=== PATIENT | male | born 1955 | race Hispanic/Latino ===

== ENCOUNTER 2017-06-25 11:38 | Inpatient (IN) | payer OTHER ==
[2017-06-25] MEDS ORDERED: Tdap Vaccine 0.5 ml Vial (10-64 yrs) IM ONE (12:37)
--- NOTE | 2017-06-25 13:17 | CT ---
PROCEDURE: CT HEAD WITHOUT CONTRAST. HISTORY: Fall, trauma COMPARISON: None available. TECHNIQUE: Axial computed tomography images were obtained through the head/brain without intravenous contrast. Radiation dose: Total exam DLP = 933.68 mGy-cm. This CT exam was performed using one or more of the following dose reduction techniques: Automated exposure control, adjustment of the mA and/or kV according to patient size, and/or use of iterative reconstruction technique. FINDINGS: HEMORRHAGE: No intracranial hemorrhage. BRAIN: There is no mass, mass effect or abnormal extra-axial fluid collection. There is no territorial infarction VENTRICLES: There is mild age-related global parenchymal volume loss and proportionate enlargement of the ventricles and cortical sulci. CALVARIUM: There is no calvarial fracture or extracranial soft tissue swelling. PARANASAL SINUSES: Predominantly clear. MASTOID AIR CELLS: Predominantly clear. OTHER FINDINGS: None. IMPRESSION: No acute intracranial abnormality.
[2017-06-25 14:56] LABS: ALB/GLOB RATIO 1.4 (1.0-2.1); ALBUMIN 4.6 g/dL (3.5-5.0); ALT/SGPT 77 U/L (21-72); AST/SGOT 48 U/L (17-59); BLOOD UREA NITROGEN 21 mg/dl (9-20); CALCIUM 10.1 mg/dL (8.4-10.2); GFR AFRICAN-AMERICAN > 60; GFR NON-AFRICAN AMERICAN > 60
[2017-06-25 14:58] LABS: PROTHROMBIN TIME 11.3 Seconds (9.8-13.1)
[2017-06-25 14:59] LABS: PARTIAL THROMBOPLASTIN TIME 32.5 Seconds (25.6-37.1)
[2017-06-25 15:01] LABS: BASO % 0.2 % (0.0-2.0); EOS % 0.1 % (0.0-4.0); HEMOGLOBIN 15.7 g/dL (12.0-18.0); LYMPH % 5.7 % (20.0-40.0); MEAN CELL VOLUME 88.6 fl (80.0-94.0); MEAN CORPUSCULAR HEMOGLOBIN 30.7 pg (27.0-31.0); MEAN CORPUSCULAR HGB CONC 34.6 g/dL (33.0-37.0); MEAN PLATELET VOLUME 10.6 fl (7.2-11.7); MONO # 0.8 K/uL (0.0-0.8); MONO % 4.5 % (0.0-10.0); NEUT # 15.6 K/uL (1.8-7.0); NEUT % 89.5 % (50.0-75.0); NRBC % 0.2 % (0.0-0.0); PLATELET COUNT 162 K/uL (130-400); RBC 5.12 Mil/uL (4.40-5.90); RED CELL DISTRIBUTION WIDTH 13.2 % (11.5-14.5); WHITE BLOOD COUNT 17.4 K/uL (4.8-10.8)
[2017-06-25] MEDS ORDERED: Morphine 4 MG/ML VIAL IVP STA (15:20)
[2017-06-25] MEDS ORDERED: Morphine 4 MG/ML VIAL ONE (15:23)
[2017-06-25 15:29] LABS: BANDS 20 % (0-2); LYMPHOCYTE 6 % (20-50); MONOCYTE 2 % (0-10); NEUTROPHIL 69 % (42-75); PLATELET ESTIMATE NORMAL (NORMAL); REACTIVE LYMPHOCYTES 3 % (0-0); TOTAL CELLS COUNTED 100
[2017-06-25 15:30] LABS: HYPOCHROMIC SLIGHT
[2017-06-25 15:31] LABS: GIANT PLATELETS PRESENT; LARGE PLATELETS PRESENT; STOMATOCYTES SLIGHT
--- NOTE | 2017-06-25 17:14 | ED PDOC ---
HPI: Trauma/Fall - HPI Time Seen by Provider: 06/25/17 11:57 Chief Complaint (Nursing): Lower Extremity Problem/Injury Chief Complaint (Provider): Left Hip Injury History Per: Patient History/Exam Limitations: no limitations Injury Occurred (Timing): Just Before Arrival Location Of Injury: Left: Hip Severity: None Associated Symptoms: denies: Dizziness, LOC Additional Complaint(s): 61 year old female presenting to the ED post fall with injury to his left hip. As per patient he was standing on a 3 foot high platform at [employer] while shopping when he fell causing injury to his right hip. He states that he did hit his head but there was no loss of consciousness. Denies headache, neck pain , back pain, vomiting, numbness, injury to other extremities. Patient has no additional complaints. Past Medical History Reviewed: Historical Data, Nursing Documentation, Vital Signs Vital Signs: Last Vital Signs Temp 98.1 F 06/25/17 11:51 Pulse 81 06/25/17 11:51 Resp 19 06/25/17 11:51 BP 137/88 06/25/17 11:51 Pulse Ox 100 06/25/17 11:51 - Medical History PMH: No Chronic Diseases - Surgical History Surgical History: No Surg Hx - Family History Family History: States: Unknown Family Hx - Social History Current smoker - smoking cessation education provided: No (Former smoker) Ex-Smoker (has not smoked in the last 12 months): No Alcohol: Occasional Drugs: Denies - Home Medications Home Medications: Ambulatory Orders Medication Instructions Recorded No Known Home Med 06/25/17 - Allergies Allergies/Adverse Reactions: Allergies Allergy/AdvReac Type Severity Reaction Status Date / Time No Known Allergies Allergy Verified 06/25/17 11:54 Review of Systems ROS Statement: Except As Marked, All Systems Reviewed And Found Negative Gastrointestinal: Negative for: Vomiting Musculoskeletal: Positive for: Other (Injury to left him). Negative for: Neck Pain, Shoulder Pain, Back Pain Neurological: Negative for: Headache Physical Exam - Reviewed Nursing Documentation Reviewed: Yes Vital Signs Reviewed: Yes - Physical Exam Appears: Positive for: Non-toxic, In Acute Distress (moderate painfu distress) Head Exam: Positive for: NORMAL INSPECTION, NORMOCEPHALIC. Negative for: ATRAUMATIC (abrasion on right frontal aspect of scalp) Skin: Positive for: Normal Color (Abrasion on left arm), Warm, Dry. Negative for: Rash Eye Exam: Positive for: Normal appearance, EOMI, PERRL. Negative for: Nystagmus , Conjunctival injection, Scleral icterus ENT: Positive for: Normal ENT Inspection. Negative for: Nasal Congestion, Tonsillar Exudate, Tonsillar Swelling Neck: Positive for: Normal, Painless ROM, Supple Cardiovascular/Chest: Positive for: Regular Rate, Rhythm, Chest Non Tender. Negative for: Gallop, Murmur, Tachycardia Respiratory: Positive for: Normal Breath Sounds, Decreased Breath Sounds. Negative for: Rales, Rhonchi, Wheezing, Respiratory Distress Pulses-Dorsalis Pedis (L): 2+ Pulses-Dorsalis Pedis (R): 2+ Pulses-Radial (L): 2+ Pulses-Radial (R): 2+ Gastrointestinal/Abdominal: Positive for: Normal Exam, Bowel Sounds, Soft. Negative for: Tenderness, Mass, Guarding, Rebound Back: Positive for: Normal Inspection, L CVA Tenderness, R CVA Tenderness Extremity: Positive for: Normal ROM (limited ROM secondary to pain to the L hip) , Tenderness (tenderness to left hip), Capillary Refill (normal), Deformity, Other (distal sensations intact). Negative for: Swelling Neurologic/Psych: Positive for: Alert, home assessment nurse II-XII, Oriented, Gait (not tested due to pain and injury). Negative for: Motor/Sensory Deficits - Laboratory Results Result Diagrams: 06/25/17 14:39 06/25/17 14:39 - ECG O2 Sat by Pulse Oximetry: 100 (RA) Pulse Ox Interpretation: Normal Medical Decision Making Medical Decision Makin Initial Impression 61 y/o male presenting post fall Initial Plan: * Type and Screen * CT EXT lower w/o contrast * CT Head w/o Contrast * EKG * CMP * CBC * PT * PTT * CXR * Tetatnus 0.5ml IM * Dilaudid 1mg IVP * Morphine 4mg IVP * Tylenol 975 mg PO * Zofran 4mg IVP * Admit 1504 * vital Signs Qshift * RAD Femue Min 2 view * RAD Hip Min 2V w/ Pelvis LT * Reevaluation 1515 Xray L femur, hip, pelvis : + fracture at femoral neck, as read by PA. Ortho admission nurse coordinator Dr. Montoya called, cased discussed in great detail, he recommends admission to hospital with surgery which will likely be done on Tuesday after pt has been medically cleared. Dr. Montoya requesting CT scan of left lower extremity for further evaluation of fracture. Case discussed with Dr. Enedelia mckeon admission nurse coordinator who will admit patient. Bridge orders placed. Consult with dough molder admission nurse coordinator Dr. Spencer placed as per Dr. Montoya's request. Labs ordered EKG chest Xray 1600 On revaluation: xray results and diagnosis discussed with pt in great detail, notified that he will need to be admitted to hospital with high need for surgery pt agrees with further inpatient treatment. Patient is requesting for pain medication. Morphine 4 mg IV and zofran 4 mg IV given. EKG : SR at 65 bpm, with PAC, (-) acute ST changes, as read by ADÁN CXR : NAD, as read by ADÁN Labs reviewed : wbc is 17, (+) bands, likely due to stress reaction from the acute fracture. ER MD aware. Documented by Alexa Bahena acting as a scribe for Shyla Howard PA-C. All medical record entries made by the Scribe were at my direction and personally dictated by me. I have reviewed the chart and agree that the record accurately reflects my personal performance of the history, physical exam, medical decision making, and the department course for this patient. I have also personally directed, reviewed, and agree with the discharge instructions and disposition. Disposition - Clinical Impression Clinical Impression: Femoral neck fracture - Patient ED Disposition Is Patient to be Admitted: Yes Counseled Patient/Family Regarding: Studies Performed, Diagnosis - Disposition Disposition Time: 14:00 Condition: STABLE
--- NOTE | 2017-06-25 17:33 | CT ---
PROCEDURE: CT of the Left Hip. HISTORY: femoral neck fracture COMPARISON: Left hip with pelvis radiographs 06/25/2017. TECHNIQUE: Contiguous axial images of the right hip were obtained. Coronal and sagittal reformats were generated. Radiation dose:Total exam DLP = 943.64 mGy-cm. This CT exam was performed using one or more of the following dose reduction techniques: Automated exposure control, adjustment of the mA and/or kV according to patient size, and/or use of iterative reconstruction technique. FINDINGS: BONES: There is an impacted, acute fracture of the left femoral neck which is comminuted. The major fracture fragment is angulated posteriorly. No dislocation or subluxation. This does not appear to be a pathological fracture. Limited local soft tissue edema is identified. The acetabulum appears intact although degenerative changes are seen at the left sacroiliac and left hip joints. SOFT TISSUES: Local musculature appear unremarkable though limited edema is identified in the fat within local tissue planes as described above. IMPRESSION: Comminuted impacted fracture left femoral neck with posterior angulation of the major fracture fragment. No dislocation.
--- NOTE | 2017-06-25 17:39 | RAD ---
PROCEDURE: Left Femur Radiographs. HISTORY: pain COMPARISON: None. TECHNIQUE: AP and Lateral Radiographs of the left femur. FINDINGS: FEMUR: Left femoral neck noted as discussed in separate left hip CT and left hip radiograph series please see separate report. No additional fracture left femur. . SOFT TISSUES: Normal. OTHER FINDINGS: None. IMPRESSION: Left femoral neck fracture. No dislocation.
--- NOTE | 2017-06-25 17:42 | RAD ---
PROCEDURE: Left Hip with small case X-ray Radiographs. HISTORY: pain COMPARISON: Left hip CT without contrast 06/25/2017. FINDINGS: BONES: There is a impacted fracture of the left femoral neck with varus angulation. The fracture approaches the intertrochanteric region. Posterior angulation is demonstrated more accurately in separate left hip CT exam 224 is 18. Please separate report. No dislocation. JOINTS: Degenerative sacroiliac and hip joint changes seen bilaterally. No left hip dislocation. SOFT TISSUES: Normal. OTHER FINDINGS: None. IMPRESSION: Impacted fracture distal left femoral neck approaching the intertrochanteric region. No dislocation apparent. Degenerative changes bilateral sacroiliac and hip joints. Please see separate CT report also performed 06/25/2017.
--- NOTE | 2017-06-25 18:04 | RAD ---
HISTORY: possible OR COMPARISON: No prior. FINDINGS: LUNGS: No active pulmonary disease. PLEURA: No significant pleural effusion identified, no pneumothorax apparent. CARDIOVASCULAR: Normal. OSSEOUS STRUCTURES: No significant abnormalities. VISUALIZED UPPER ABDOMEN: Normal. OTHER FINDINGS: None. IMPRESSION: No acute cardiopulmonary disease appreciated.
--- NOTE | 2017-06-25 18:08 | CP.PCM.CON ---
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 Pt had sustained a fall at [employer], when he had sustained a fall from a 4-5 foot height; pt fell and sustained a torsional moment to L HIP, when pt had climbeda small stepladder to ascends a pl ;atform to view a chandelier. There were no proper markings andd the adjacent platform caused pt to fall on L hip with abrasions L forearm. Pt admitted for L Total Hip Replacement Review of Systems - Hematologic/Lymphatic Additional comments: ROS pt struck head; no LOC Past Patient History - Infectious Disease Hx of Infectious Diseases: None - Past Social History Alcohol: Occasional Drugs: Denies - HEMATOLOGICAL/ONCOLOGICAL Hx Blood Disorders: Yes (Hep C) - PSYCHIATRIC Hx Substance Use: No - SURGICAL HISTORY Hx Surgeries: Yes Other/Comment: repair of Achilles tendon - ANESTHESIA Hx Anesthesia: Yes Hx Anesthesia Reactions: No Meds Allergies/Adverse Reactions: Allergies Allergy/AdvReac Type Severity Reaction Status Date / Time No Known Allergies Allergy Verified 06/25/17 11:54 Physical Exam - Additional Findings Additional findings: Obj Exam: systemic- wnl please refer to H+P of admitting hospitalist Musculoskeletal stance/gait- defrred pt with shortening and ecternal rotation of L lower extremity N/V intact + abrasios L foream no evidence for upper ext fx Results - Vital Signs Recent Vital Signs: Last Vital Signs Temp 98.8 F 06/25/17 17:45 Pulse 82 06/25/17 17:45 Resp 16 06/25/17 17:45 BP 116/65 06/25/17 17:45 Pulse Ox 100 06/25/17 17:53 - Labs Result Diagrams: 06/25/17 14:39 06/25/17 14:39 Labs: Laboratory Results - last 24 hr 06/25/17 06/25/17 06/25/17 14:39 14:39 14:39 WBC 17.4 H RBC 5.12 Hgb 15.7 Hct 45.4 MCV 88.6 MCH 30.7 MCHC 34.6 RDW 13.2 Plt Count 162 MPV 10.6 Neut % (Auto) 89.5 H Lymph % (Auto) 5.7 L [place] % (Auto) 4.5 Eos % (Auto) 0.1 Baso % (Auto) 0.2 Neut # (Auto) 15.6 H Lymph # (Auto) 1.0 [place] # (Auto) 0.8 Eos # (Auto) 0.0 Baso # (Auto) 0.0 Neutrophils % (Manual) 69 Band Neutrophils % 20 H* Lymphocytes % (Manual) 6 L Reactive Lymphs % 3 H Monocytes % (Manual) 2 Platelet Estimate Normal Large Platelets Present Giant Platelets Present RBC Morphology Normal Hypochromasia (manual) Slight Macrocytosis (manual) Slight Stomatocytes Slight PT 11.3 INR 1.0 APTT 32.5 Sodium 142 Potassium 4.1 Chloride 102 Carbon Dioxide 26 Anion Gap 18 BUN 21 H Creatinine 1.1 Est GFR ( Amer) > 60 Est GFR (Non-Af Amer) > 60 Random Glucose 120 H Calcium 10.1 Total Bilirubin 0.6 AST 48 ALT 77 H Alkaline Phosphatase 72 Total Protein 7.9 Albumin 4.6 Globulin 3.3 Albumin/Globulin Ratio 1.4 Blood Type Antibody Screen BBK History Checked 06/25/17 14:39 WBC RBC Hgb Hct MCV MCH MCHC RDW Plt Count MPV Neut % (Auto) Lymph % (Auto) [place] % (Auto) Eos % (Auto) Baso % (Auto) Neut # (Auto) Lymph # (Auto) [place] # (Auto) Eos # (Auto) Baso # (Auto) Neutrophils % (Manual) Band Neutrophils % Lymphocytes % (Manual) Reactive Lymphs % Monocytes % (Manual) Platelet Estimate Large Platelets Giant Platelets RBC Morphology Hypochromasia (manual) Macrocytosis (manual) Stomatocytes PT INR APTT Sodium Potassium Chloride Carbon Dioxide Anion Gap BUN Creatinine Est GFR ( Amer) Est GFR (Non-Af Amer) Random Glucose Calcium Total Bilirubin AST ALT Alkaline Phosphatase Total Protein Albumin Globulin Albumin/Globulin Ratio Blood Type O POSITIVE Antibody Screen Negative BBK History Checked No verified bt - Impressions Impression: Imaging Planar xrays A/P pelvis A/P and lateral Xray L hip- reveals preexisting primary O/A / and Garden's 4 subcapital L hip fx CT scan Assessment & Plan - Assessment and Plan (Free Text) Assessment: A- Gardens 4 subcapital fx L hip wuith preexistiong O/A L hip P- medical/cardiologic clearance: To OR Tuesday for L THR pros/cons risks and benefits discussed with pt at length Possibility of mechan ical failure/infection/thromboem,bolic dieas, nerve injury leg length inequality discussed at length NO PROMIOSES/guarantees
--- NOTE | 2017-06-25 18:57 | CARD ---
APPROVED REPORT EKG Measurement Heart [id number] CT [id number] <Conclusion> Sinus rhythm with blocked premature atrial complexes Otherwise normal ECG
[2017-06-25 20:40] LABS: HEMOGLOBIN 14.8 g/dL (12.0-18.0); MEAN CELL VOLUME 88.5 fl (80.0-94.0); MEAN CORPUSCULAR HEMOGLOBIN 30.4 pg (27.0-31.0); MEAN CORPUSCULAR HGB CONC 34.4 g/dL (33.0-37.0); RBC 4.88 Mil/uL (4.40-5.90)
[2017-06-25] MEDS: Enoxaparin 40 mg Syringe SC SCH (21:38)
--- NOTE | 2017-06-25 22:12 | CP.PCM.HP ---
History of Present Illness - History of Present Illness History of Present Illness: CC: Left Hip Pain after a Fall History of Present Illness: A 61 year old female presenting to the ED post fall with injury to his left hip. As per patient he was standing on a 3 foot high platform at [employer] while shopping when he fell causing injury to his right hip. He states that he did hit his head but there was no loss of consciousness. Denies headache, neck pain, back pain, vomiting, numbness, injury to other extremities. Patient has no additional complaints. Had Achilles Tendon repair and did not react to Anesthesia. Patient active is active with B/n 4-10 METs Equivalent. Denies chest pain or ROLDAN. Present on Admission - Present on Admission Any Indicators Present on Admission: No History of DVT/PE: No Urinary Catheter: No Decubitus Ulcer Present: No Review of Systems - Review of Systems All systems: reviewed and no additional remarkable complaints except - Musculoskeletal Musculoskeletal: As Per HPI Past Patient History - Infectious Disease Hx of Infectious Diseases: None - Past Medical History & Family History Past Medical History?: Yes Past Family History: Reviewed and not pertinent - Past Social History Smoking Status: Heavy Smoker > 10 Cigarettes Daily Alcohol: Occasional Drugs: Denies - CARDIAC Hx Hypertension: Yes - PULMONARY Hx Respiratory Disorders: No - NEUROLOGICAL Hx Neurological Disorder: No - HEENT Hx HEENT Problems: No - RENAL Hx Chronic Kidney Disease: No - ENDOCRINE/METABOLIC Hx Endocrine Disorders: No - HEMATOLOGICAL/ONCOLOGICAL Hx Blood Disorders: Yes (Hep C) - INTEGUMENTARY Hx Dermatological Problems: No - MUSCULOSKELETAL/RHEUMATOLOGICAL Hx Musculoskeletal Disorders: No Hx Falls: Yes (fell from ladder) - GASTROINTESTINAL Hx Gastrointestinal Disorders: No - GENITOURINARY/GYNECOLOGICAL Hx Genitourinary Disorders: No - PSYCHIATRIC Hx Substance Use: No - SURGICAL HISTORY Hx Surgeries: Yes Other/Comment: repair of Achilles tendon - ANESTHESIA Hx Anesthesia: Yes Hx Anesthesia Reactions: No Meds Allergies/Adverse Reactions: Allergies Allergy/AdvReac Type Severity Reaction Status Date / Time No Known Allergies Allergy Verified 06/25/17 11:54 Physical Exam - Constitutional Appears: Well, No Acute Distress - Head Exam Head Exam: ATRAUMATIC, NORMAL INSPECTION, NORMOCEPHALIC - Eye Exam Eye Exam: EOMI, Normal appearance, PERRL Pupil Exam: NORMAL ACCOMODATION, PERRL - ENT Exam ENT Exam: Mucous Membranes Moist, Normal Exam - Neck Exam Neck exam: Positive for: Full Rom, Normal Inspection - Respiratory Exam Respiratory Exam: Clear to Auscultation Bilateral, NORMAL BREATHING PATTERN - Cardiovascular Exam Cardiovascular Exam: REGULAR RHYTHM, +S1, +S2 - GI/Abdominal Exam GI & Abdominal Exam: Normal Bowel Sounds, Soft. absent: Rigid, Tenderness - Extremities Exam Extremities exam: Positive for: normal capillary refill, tenderness. Negative for: calf tenderness Additional comments: Left Hip Tenderness upon attempt to move and intact Neurovacular bundle to the left Lower Extremities. Good +ve dorsalis Pedis Pulse. - Back Exam Back exam: NORMAL INSPECTION. absent: CVA tenderness (L), CVA tenderness (R) - Neurological Exam Neurological exam: Alert, CN II-XII Intact, Oriented x3, Reflexes Normal - Psychiatric Exam Psychiatric exam: Normal Affect, Normal Mood - Skin Skin Exam: Dry, Intact, Normal Color, Warm Results - Vital Signs Recent Vital Signs: Last Vital Signs Temp 98.8 F 06/25/17 18:06 Pulse 66 06/25/17 18:06 Resp 18 06/25/17 18:06 BP 149/76 06/25/17 18:06 Pulse Ox 95 06/25/17 18:06 - Labs Result Diagrams: 06/25/17 20:25 06/25/17 14:39 Labs: Laboratory Results - last 24 hr 06/25/17 06/25/17 06/25/17 14:39 14:39 14:39 WBC 17.4 H RBC 5.12 Hgb 15.7 Hct 45.4 MCV 88.6 MCH 30.7 MCHC 34.6 RDW 13.2 Plt Count 162 MPV 10.6 Neut % (Auto) 89.5 H Lymph % (Auto) 5.7 L [place] % (Auto) 4.5 Eos % (Auto) 0.1 Baso % (Auto) 0.2 Neut # (Auto) 15.6 H Lymph # (Auto) 1.0 [place] # (Auto) 0.8 Eos # (Auto) 0.0 Baso # (Auto) 0.0 Neutrophils % (Manual) 69 Band Neutrophils % 20 H* Lymphocytes % (Manual) 6 L Reactive Lymphs % 3 H Monocytes % (Manual) 2 Platelet Estimate Normal Large Platelets Present Giant Platelets Present RBC Morphology Normal Hypochromasia (manual) Slight Macrocytosis (manual) Slight Stomatocytes Slight PT 11.3 INR 1.0 APTT 32.5 Sodium 142 Potassium 4.1 Chloride 102 Carbon Dioxide 26 Anion Gap 18 BUN 21 H Creatinine 1.1 Est GFR ( Amer) > 60 Est GFR (Non-Af Amer) > 60 Random Glucose 120 H Calcium 10.1 Total Bilirubin 0.6 AST 48 ALT 77 H Alkaline Phosphatase 72 Total Protein 7.9 Albumin 4.6 Globulin 3.3 Albumin/Globulin Ratio 1.4 Blood Type Blood Type Confirm Antibody Screen BBK History Checked 06/25/17 06/25/17 06/25/17 14:39 20:25 20:25 WBC 15.0 H RBC 4.88 Hgb 14.8 Hct 43.2 MCV 88.5 MCH 30.4 MCHC 34.4 RDW 13.0 Plt Count 153 MPV Neut % (Auto) Lymph % (Auto) [place] % (Auto) Eos % (Auto) Baso % (Auto) Neut # (Auto) Lymph # (Auto) [place] # (Auto) Eos # (Auto) Baso # (Auto) Neutrophils % (Manual) Band Neutrophils % Lymphocytes % (Manual) Reactive Lymphs % Monocytes % (Manual) Platelet Estimate Large Platelets Giant Platelets RBC Morphology Hypochromasia (manual) Macrocytosis (manual) Stomatocytes PT INR APTT Sodium Potassium Chloride Carbon Dioxide Anion Gap BUN Creatinine Est GFR ( Amer) Est GFR (Non-Af Amer) Random Glucose Calcium Total Bilirubin AST ALT Alkaline Phosphatase Total Protein Albumin Globulin Albumin/Globulin Ratio Blood Type O POSITIVE Blood Type Confirm O POSITIVE Antibody Screen Negative BBK History Checked No verified bt - EKG Data EKG shows normal: Sinus rhythm Rate: Normal - Imaging and Cardiology Hip/Pelvis X-Ray: Status: Report reviewed by me Additional comment: IMPRESSION: Impacted fracture distal left femoral neck approaching the intertrochanteric region. No dislocation apparent. Degenerative changes bilateral sacroiliac and hip joints. Please see separate CT report also performed 06/25/2017. CT Hip: Status: Report reviewed by me Additional comment: IMPRESSION: Comminuted impacted fracture left femoral neck with posterior Angulation of the major fracture fragment. No dislocation. Chest x-ray Status: Report reviewed by me Additional comment: IMPRESSION: No acute cardiopulmonary disease appreciated. Femur X ray: Status: Report reviewed by me Additional comment: IMPRESSION: Left femoral neck fracture. No dislocation. CT scan - head Status: Report reviewed by me Additional comment: IMPRESSION: Left femoral neck fracture. No dislocation. Assessment & Plan (1) Fracture of femoral neck, left Assessment and Plan: Pain Control PRN IVF Orthopedic on board Cardiology onboard IVF Medically Cleared for ORIF after Cardiology Clearance DVT Prophylaxis Status: Acute Priority: High (2) Essential (primary) hypertension Status: Chronic Priority: Low (3) Leukocytosis (leucocytosis) Status: Acute Priority: Medium
[2017-06-26] MEDS: Enoxaparin 40 mg Syringe SC SCH (09:07)
--- NOTE | 2017-06-26 12:19 | CP.PCM.PN ---
Subjective - Date & Time of Evaluation Date of Evaluation: 06/26/17 Time of Evaluation: 12:00 - Subjective Subjective: ID: 61 yo male CC:pain/deformity /inability to bear weight L Lower extremity HPI: 61 yo male presents with severe pain after fall at [employer] on improperly (not signed) patform. Pt with persistent pain Objective - Vital Signs/Intake and Output Vital Signs (last 24 hours): Temp Pulse Resp BP Pulse Ox 98.1 F 58 L 20 109/64 97 06/26/17 08:30 06/26/17 08:30 06/26/17 08:30 06/26/17 08:30 06/26/17 08:30 - Medications Medications: Current Medications Acetaminophen (Tylenol 325mg Tab) 650 mg PO Q6 PRN PRN Reason: Pain, Mild (1-3) Enoxaparin Sodium (Lovenox) 40 mg SC DAILY PHILLIP PRN Reason: Protocol Last Admin: 06/26/17 09:07 Dose: 40 mg Hydromorphone HCl (Dilaudid) 1 mg IVP Q4 PRN PRN Reason: Pain, severe (8-10) Last Admin: 06/26/17 08:37 Dose: 1 mg Morphine Sulfate (Morphine) 2 mg IVP Q4 PRN PRN Reason: Pain, severe (8-10) - Labs Labs: 06/25/17 20:25 06/25/17 14:39 PT 11.3 Seconds (9.8-13.1) 06/25/17 14:39 INR 1.0 (0.9-1.2) 06/25/17 14:39 APTT 32.5 Seconds (25.6-37.1) 06/25/17 14:39 - Additional Findings Additional findings: Objective stance/gait- defrred tx not yet applied, as ordered in ER NANCY stockings not applied Xrays- displaced/ comminuted L femoral neck fx. with prexisting O/A L hip Assessment and Plan - Assessment and Plan (Free Text) Assessment: A- gardens's 4 subcapital L femur fx with preexisting O/A l hip P to OR for THR AM possibility of mechanical failure/infection/thromboembolic disease/possibility of secondary or tertiary surgery discussed Possibilityof recureent dislocation/leg length ineqaulity/nerve injury discussed NO [id number] /GUARANTEES- alternative procedures- eg ORIF discussed- not apprpriate because of high incidence of AVN if the fx is fixed with internal fixation
--- NOTE | 2017-06-26 12:33 | CP.PCM.CON ---
History of Present Illness - History of Present Illness History of Present Illness: THE PATIENT IS A 61 YEAR OLD MALE WHO FELL OFF A LADDER AT HOME DEPOT AND WAS FOUND TO SIMS A LEFT HIP FRACTURE AND WILL HAVE A LEFT THR. HE ALSO HAS A HISTORY OF HYPERTENSION AND TAKES A MEDICATION EVERY OTHER DAY. CARDIOLOGY WAS ASKED TO SEE HIM PRE-OP. HE DENIES ANY KNOWN CARDIAC PROBLEMS AND DOESN'T HAVE ANGINA AND NEVER HAS AN NH. THE ONLY OTHER MEDICAL PROBLEM HE HAS IS HEPATITIS C AND HE IS RECEIVING TREATMENT FOR THAT. HE FELL AND DENIES PALPITATIONS, SYNCOPE OR NEAR-SYNCOPE. Past Patient History - Infectious Disease Hx of Infectious Diseases: None - Past Medical History & Family History Past Medical History?: Yes - Past Social History Alcohol: Occasional Drugs: Denies - CARDIAC Hx Hypertension: Yes - PULMONARY Hx Respiratory Disorders: No - NEUROLOGICAL Hx Neurological Disorder: No - HEENT Hx HEENT Problems: No - RENAL Hx Chronic Kidney Disease: No - ENDOCRINE/METABOLIC Hx Endocrine Disorders: No - HEMATOLOGICAL/ONCOLOGICAL Hx Blood Disorders: Yes (Hep C) - INTEGUMENTARY Hx Dermatological Problems: No - MUSCULOSKELETAL/RHEUMATOLOGICAL Hx Musculoskeletal Disorders: No Hx Falls: Yes (fell from ladder) - GASTROINTESTINAL Hx Gastrointestinal Disorders: No - GENITOURINARY/GYNECOLOGICAL Hx Genitourinary Disorders: No - PSYCHIATRIC Hx Substance Use: No - SURGICAL HISTORY Hx Surgeries: Yes Other/Comment: repair of Achilles tendon - ANESTHESIA Hx Anesthesia: Yes Hx Anesthesia Reactions: No Meds Allergies/Adverse Reactions: Allergies Allergy/AdvReac Type Severity Reaction Status Date / Time No Known Allergies Allergy Verified 06/25/17 11:54 - Medications Medications: Current Medications Acetaminophen (Tylenol 325mg Tab) 650 mg PO Q6 PRN PRN Reason: Pain, Mild (1-3) Enoxaparin Sodium (Lovenox) 40 mg SC DAILY [facility] PRN Reason: Protocol Last Admin: 06/26/17 09:07 Dose: 40 mg Hydromorphone HCl (Dilaudid) 2 mg IVP Q4 PRN PRN Reason: Pain, severe (8-10) Morphine Sulfate (Morphine) 2 mg IVP Q4 PRN PRN Reason: Pain, severe (8-10) Physical Exam - Respiratory Exam Respiratory Exam: Clear to Auscultation Bilateral - Cardiovascular Exam Cardiovascular Exam: REGULAR RHYTHM, +S1, +S2 - Additional Findings Additional findings: EKG SINUS RHYTHM WITH SINUS ARRYTHMIA CXR NAD Results - Vital Signs Recent Vital Signs: Last Vital Signs Temp 98.1 F 06/26/17 08:30 Pulse 58 L 06/26/17 08:30 Resp 20 06/26/17 08:30 BP 109/64 06/26/17 08:30 Pulse Ox 97 06/26/17 08:30 - Labs Result Diagrams: 06/25/17 20:25 06/25/17 14:39 Labs: Laboratory Results - last 24 hr 06/25/17 06/25/17 06/25/17 14:39 14:39 14:39 WBC 17.4 H RBC 5.12 Hgb 15.7 Hct 45.4 MCV 88.6 MCH 30.7 MCHC 34.6 RDW 13.2 Plt Count 162 MPV 10.6 Neut % (Auto) 89.5 H Lymph % (Auto) 5.7 L Stokes % (Auto) 4.5 Eos % (Auto) 0.1 Baso % (Auto) 0.2 Neut # (Auto) 15.6 H Lymph # (Auto) 1.0 Stokes # (Auto) 0.8 Eos # (Auto) 0.0 Baso # (Auto) 0.0 Neutrophils % (Manual) 69 Band Neutrophils % 20 H* Lymphocytes % (Manual) 6 L Reactive Lymphs % 3 H Monocytes % (Manual) 2 Platelet Estimate Normal Large Platelets Present Giant Platelets Present RBC Morphology Normal Hypochromasia (manual) Slight Macrocytosis (manual) Slight Stomatocytes Slight PT 11.3 INR 1.0 APTT 32.5 Sodium 142 Potassium 4.1 Chloride 102 Carbon Dioxide 26 Anion Gap 18 BUN 21 H Creatinine 1.1 Est GFR ( Amer) > 60 Est GFR (Non-Af Amer) > 60 Random Glucose 120 H Calcium 10.1 Total Bilirubin 0.6 AST 48 ALT 77 H Alkaline Phosphatase 72 Total Protein 7.9 Albumin 4.6 Globulin 3.3 Albumin/Globulin Ratio 1.4 Blood Type Blood Type Confirm Antibody Screen BBK History Checked 06/25/17 06/25/17 06/25/17 14:39 20:25 20:25 WBC 15.0 H RBC 4.88 Hgb 14.8 Hct 43.2 MCV 88.5 MCH 30.4 MCHC 34.4 RDW 13.0 Plt Count 153 MPV Neut % (Auto) Lymph % (Auto) Stokes % (Auto) Eos % (Auto) Baso % (Auto) Neut # (Auto) Lymph # (Auto) Stokes # (Auto) Eos # (Auto) Baso # (Auto) Neutrophils % (Manual) Band Neutrophils % Lymphocytes % (Manual) Reactive Lymphs % Monocytes % (Manual) Platelet Estimate Large Platelets Giant Platelets RBC Morphology Hypochromasia (manual) Macrocytosis (manual) Stomatocytes PT INR APTT Sodium Potassium Chloride Carbon Dioxide Anion Gap BUN Creatinine Est GFR ( Amer) Est GFR (Non-Af Amer) Random Glucose Calcium Total Bilirubin AST ALT Alkaline Phosphatase Total Protein Albumin Globulin Albumin/Globulin Ratio Blood Type O POSITIVE Blood Type Confirm O POSITIVE Antibody Screen Negative BBK History Checked No verified bt Assessment & Plan - Assessment and Plan (Free Text) Assessment: FALL WITH LEFT FEMUR/HIP FRACTURE MILD HYPERTENSION-BP HAS BEEN GOOD SO FAR ON THIS ADMISSION Plan: THE PATIENT IS CLEARED FOR SURGERY
--- NOTE | 2017-06-26 13:39 | CP.PCM.PN ---
Subjective - Date & Time of Evaluation Date of Evaluation: 06/26/17 Time of Evaluation: 21:35 - Subjective Subjective: Seen and examined at the bed side. Patient is on weight traction with improved to pain. Cardiology Clearance appreciated. Will NPO past midnight for ORIF tomorrow AM. Objective - Vital Signs/Intake and Output Vital Signs (last 24 hours): Temp Pulse Resp BP Pulse Ox 98.1 F 58 L 20 109/64 97 06/26/17 08:30 06/26/17 08:30 06/26/17 08:30 06/26/17 08:30 06/26/17 08:30 - Medications Medications: Current Medications Acetaminophen (Tylenol 325mg Tab) 650 mg PO Q6 PRN PRN Reason: Pain, Mild (1-3) Enoxaparin Sodium (Lovenox) 40 mg SC DAILY [facility] PRN Reason: Protocol Last Admin: 06/26/17 09:07 Dose: 40 mg Hydromorphone HCl (Dilaudid) 2 mg IVP Q4 PRN PRN Reason: Pain, severe (8-10) Last Admin: 06/26/17 12:57 Dose: 2 mg Morphine Sulfate (Morphine) 2 mg IVP Q4 PRN PRN Reason: Pain, severe (8-10) - Labs Labs: 06/25/17 20:25 06/25/17 14:39 PT 11.3 Seconds (9.8-13.1) 06/25/17 14:39 INR 1.0 (0.9-1.2) 06/25/17 14:39 APTT 32.5 Seconds (25.6-37.1) 06/25/17 14:39 - Constitutional Appears: Well, No Acute Distress - Head Exam Head Exam: ATRAUMATIC, NORMAL INSPECTION, NORMOCEPHALIC - Eye Exam Eye Exam: EOMI, Normal appearance, PERRL Pupil Exam: NORMAL ACCOMODATION, PERRL - ENT Exam ENT Exam: Mucous Membranes Moist, Normal Exam - Neck Exam Neck Exam: Full ROM, Normal Inspection. absent: Lymphadenopathy - Respiratory Exam Respiratory Exam: Clear to Ausculation Bilateral, NORMAL BREATHING PATTERN - Cardiovascular Exam Cardiovascular Exam: REGULAR RHYTHM, +S1, +S2. absent: Murmur - GI/Abdominal Exam GI & Abdominal Exam: Soft, Normal Bowel Sounds. absent: Tenderness - Extremities Exam Extremities Exam: Full ROM, Normal Capillary Refill, Tenderness (Left Hip ). absent: Joint Swelling, Pedal Edema - Back Exam Back Exam: NORMAL INSPECTION. absent: CVA tenderness (L), CVA tenderness (R) - Neurological Exam Neurological Exam: Alert, Awake, CN II-XII Intact, Oriented x3 - Psychiatric Exam Psychiatric exam: Normal Affect, Normal Mood - Skin Skin Exam: Dry, Intact, Normal Color, Warm Assessment and Plan (1) Fracture of femoral neck, left Assessment & Plan: Pain Control PRN IVF Orthopedic on board Cardiology onboard IVF Medically Cleared for ORIF DVT Prophylaxis, and hold tomorrow Am dose Status: Acute Priority: High (2) Essential (primary) hypertension Status: Chronic Priority: Low (3) Leukocytosis (leucocytosis) Reactive Improving Status: Acute
[2017-06-26 16:23] LABS: URINE BILIRUBIN NEGATIVE (NEGATIVE); URINE BLOOD NEGATIVE (NEGATIVE); URINE CLARITY CLEAR (Clear); URINE COLOR YELLOW (YELLOW); URINE GLUCOSE (UA) NEG (Normal); URINE LEUKOCYTE ESTERASE NEG Leu/uL (Negative); URINE NITRATE NEGATIVE (NEGATIVE); URINE PROTEIN NEGATIVE (NEGATIVE); URINE UROBILINOGEN 0.2-1.0 mg/dL (0.2-1.0)
[2017-06-27] MEDS ORDERED: Bupivacaine 0.5% Inj(30mL) ONE (07:37)
[2017-06-27] MEDS ORDERED: Absorbable Gelatin Sponge Size 100 ONE (07:37)
[2017-06-27] MEDS ORDERED: Lidocaine 1% Inj (20ml) ONE (07:37)
[2017-06-27] MEDS ORDERED: Bacitracin Ointment 30 GM TUBE ONE (07:37)
[2017-06-27] MEDS ORDERED: Thrombin Topical 5,000 Int Units Spray Kit ONE (07:38)
[2017-06-27] MEDS ORDERED: Morphine 1 mg/ml preservative-free Inj(Duramorph) ONE (08:00)
[2017-06-27 09:01] LABS: BASO # 0.1 K/uL (0.0-0.2); BASO % 0.4 % (0.0-2.0); EOS # 0.1 K/uL (0.0-0.7); EOS % 0.4 % (0.0-4.0); HEMOGLOBIN 14.2 g/dL (12.0-18.0); LYMPH # 2.5 K/uL (1.0-4.3); LYMPH % 18.3 % (20.0-40.0); MEAN CELL VOLUME 88.8 fl (80.0-94.0); MEAN CORPUSCULAR HEMOGLOBIN 30.3 pg (27.0-31.0); MEAN CORPUSCULAR HGB CONC 34.1 g/dL (33.0-37.0); MEAN PLATELET VOLUME 10.3 fl (7.2-11.7); MONO # 1.5 K/uL (0.0-0.8); MONO % 10.9 % (0.0-10.0); NEUT # 9.4 K/uL (1.8-7.0); NRBC % 0.2 % (0.0-0.0); RBC 4.68 Mil/uL (4.40-5.90); RED CELL DISTRIBUTION WIDTH 13.2 % (11.5-14.5); WHITE BLOOD COUNT 13.5 K/uL (4.8-10.8)
--- NOTE | 2017-06-27 09:05 | CP.PCM.PN ---
Subjective - Date & Time of Evaluation Date of Evaluation: 06/27/17 Time of Evaluation: 07:00 - Subjective Subjective: NO NEW COMPLAINTS Objective - Vital Signs/Intake and Output Vital Signs (last 24 hours): Temp Pulse Resp BP Pulse Ox 99.0 F 80 20 117/70 94 L 06/27/17 08:03 06/27/17 08:03 06/27/17 08:03 06/27/17 08:03 06/27/17 08:03 - Medications Medications: Current Medications Acetaminophen (Tylenol 325mg Tab) 650 mg PO Q6 PRN PRN Reason: Pain, Mild (1-3) Enoxaparin Sodium (Lovenox) 40 mg SC DAILY [facility] PRN Reason: Protocol Last Admin: 06/26/17 09:07 Dose: 40 mg Hydromorphone HCl (Dilaudid) 2 mg IVP Q4 PRN PRN Reason: Pain, severe (8-10) Last Admin: 06/27/17 06:14 Dose: 2 mg Morphine Sulfate (Morphine) 2 mg IVP Q4 PRN PRN Reason: Pain, severe (8-10) - Labs Labs: 06/25/17 20:25 06/25/17 14:39 PT 11.3 Seconds (9.8-13.1) 06/25/17 14:39 INR 1.0 (0.9-1.2) 06/25/17 14:39 APTT 32.5 Seconds (25.6-37.1) 06/25/17 14:39 - Respiratory Exam Respiratory Exam: Clear to Ausculation Bilateral - Cardiovascular Exam Cardiovascular Exam: REGULAR RHYTHM, +S1, +S2 Assessment and Plan - Assessment and Plan (Free Text) Assessment: FALL WITH LEFT HIP FRACTURE MILD HYPERTENSION HISTORY Plan: FOR OR TODAY CONTINUE TO OBSERVE BLOOD PRESSURE
[2017-06-27] MEDS ORDERED: Lactated Ringer's 1,000 ML IV ONE ×2 (09:12→12:00)
[2017-06-27] MEDS ORDERED: Midazolam 2 MG/2 ML VIAL ONE (09:13)
[2017-06-27] MEDS ORDERED: Succinylcholine 200 mg/10 ml Inj IV ONE (09:13)
[2017-06-27] MEDS ORDERED: Propofol 10 mg/ml Inj (20 ML) ONE (09:13)
[2017-06-27 09:14] LABS: ALB/GLOB RATIO 1.2 (1.0-2.1); ALT/SGPT 45 U/L (21-72); AST/SGOT 23 U/L (17-59); BLOOD UREA NITROGEN 22 mg/dl (9-20); CALCIUM 9.3 mg/dL (8.4-10.2); GFR AFRICAN-AMERICAN > 60; GFR NON-AFRICAN AMERICAN > 60
[2017-06-27] MEDS ORDERED: Sevoflurane - Inhalation Anesthetic Liq (250 ml) ONE (09:42)
[2017-06-27] MEDS ORDERED: Phenylephrine 10 mg/ml Inj ONE (09:42)
[2017-06-27] MEDS ORDERED: ePHEDrine 50 mg/ml Inj ONE (10:34)
[2017-06-27] MEDS ORDERED: Rocuronium 10 mg/ml (5 ml) ONE ×2 (10:36→10:40)
[2017-06-27] MEDS ORDERED: Vecuronium 10 mg Inj ONE (11:02)
[2017-06-27] MEDS ORDERED: Thrombin Topical 5,000 Int Units Spray Kit TOP ONE (12:50)
[2017-06-27] MEDS ORDERED: Absorbable Gelatin Sponge Size 100 TP ONE (12:50)
[2017-06-27] MEDS ORDERED: Bacitracin OINT 15GM TOP ONE (13:10)
[2017-06-27] MEDS ORDERED: Oxycodone/Acetaminophen 5/325 mg Tab PO PRN (13:41)
--- NOTE | 2017-06-27 13:47 | RAD ---
PROCEDURE: Intraoperative Fluoroscopy. HISTORY: Left hip arthroplasty. FINDINGS: Fluoroscopic assistance was provided for left hip arthroplasty. Please refer to the operative report from Dr. BAE. 15.5 seconds of fluoroscopy time was utilized with a cumulative DLP dose of 2.09 mGy.
[2017-06-27] MEDS ORDERED: DiphenhydrAMINE 50 mg/ml Inj IVP PRN (13:53)
[2017-06-27] MEDS ORDERED: Naloxone 0.4 mg/ml Inj (Adult) IVP PRN (13:55)
--- NOTE | 2017-06-27 14:09 | PCM.SURG1 ---
Surgeon's Initial Post Op Note - Surgeon's Notes Surgeon: Lindsay Bicycle Ii Assembler: JOCELYNE Vivas/ 2nd assist Rishi Castellano PA-C Type of Anesthesia: General Endo, Spinal Anesthesia Administered By: DR Ren Pre-Operative Diagnosis: Displaced subcapital fx L hip. Primary O/A L hip Operative Findings: as above. synovitis L hip Post-Operative Diagnosis: as above Operation Performed: L THR- anterior approach. femoral neck osteotomy. arthrotomy/synovectomy. autgraft bone graft. computer navigation Specimen/Specimens Removed: bone/synvovium Estimated Blood Loss: EBL {In ML}: 300 Blood Products Given: N/A Drains Used: No Drains Post-Op Condition: Good Date of Surgery/Procedure: 06/27/17 Time of Surgery/Procedure: 10:35 (time bi room anaersthesia indcution time 9:12)
--- NOTE | 2017-06-27 14:53 | RAD ---
PROCEDURE: Radiographs of the pelvis. HISTORY: s/p L JAMIR COMPARISON: Left hip with pelvis 06/25/2017. FINDINGS: BONES: The patient is now seen to be status post left hip arthroplasty femoral and acetabular components in good apparent position, to treat left femoral neck fracture. No interval fracture identified. Postop changes seen surrounding the left hip joint including lateral skin nathan. JOINTS: Sacroiliac Joints: Degenerative changes noted as well as the right hip joint. Pubic Symphysis: Unremarkable. OTHER FINDINGS: None. IMPRESSION: Interval left hip arthroplasty now identified in good apparent position with no definitive interval fracture or dislocation identified. The remainder of the pelvic ring is stable in appearance.
--- NOTE | 2017-06-27 14:56 | RAD ---
PROCEDURE: Left Hip X-ray Radiographs. HISTORY: s/p L JAMIR COMPARISON: Left hip with pelvis radiographs 06/25/2017. FINDINGS: BONES: No interval fracture or dislocation of the left hip joint is identified grossly though this is limited exam given frontal technique alone. Interval left hip arthroplasty is identified treating left femoral neck fracture with acetabular and femoral components in good apparent position. JOINTS: As above. SOFT TISSUES: Limited postop changes seen the lateral hip soft tissues including skin nathan. OTHER FINDINGS: None. IMPRESSION: Status post left hip arthroplasty to treat left femoral neck fracture as per above.
[2017-06-27] MEDS: ceFAZolin 2 GM in Sodium Chloride 0.9% 100 ML IVPB SCH (17:29)
--- NOTE | 2017-06-27 23:22 | CP.PCM.PN ---
Subjective - Date & Time of Evaluation Date of Evaluation: 06/27/17 Time of Evaluation: 17:00 - Subjective Subjective: Had left hip replacement. Has some pain alleviated by ALEMITE OPERATOR pump. Moves extremities. Denies cp, sob, f/c/n/v Objective - Vital Signs/Intake and Output Vital Signs (last 24 hours): Temp Pulse Resp BP Pulse Ox 98.4 F 81 18 91/58 L 97 06/27/17 20:00 06/27/17 20:00 06/27/17 20:00 06/27/17 20:00 06/27/17 20:00 Intake and Output: 06/27/17 06/28/17 18:59 06:59 Intake Total 1999 Balance 1999 - Medications Medications: Current Medications Acetaminophen (Tylenol 325mg Tab) 650 mg PO Q6 PRN PRN Reason: Pain, Mild (1-3) Diphenhydramine HCl (Benadryl) 25 mg IVP Q6 PRN PRN Reason: Itching / Pruritus Stop: 06/28/17 23:59 Docusate Sodium (Colace) 100 mg PO BID [facility] Last Admin: 06/27/17 17:30 Dose: 100 mg Enoxaparin Sodium (Lovenox) 40 mg SC DAILY [facility] PRN Reason: Protocol Last Admin: 06/26/17 09:07 Dose: 40 mg Hydromorphone HCl (Dilaudid) 2 mg IVP Q4 PRN PRN Reason: Pain, severe (8-10) Last Admin: 06/27/17 06:14 Dose: 2 mg Hydromorphone HCl (Dilaudid 0.2 Mg/Ml Boiling House Oiler) 0 mg IV PRN PRN; Protocol PRN Reason: Pain, severe (8-10) Stop: 06/28/17 23:59 Last Admin: 06/27/17 15:15 Dose: 0 mg Cefazolin Sodium 2 gm/ Sodium (Chloride) 100 mls @ 100 mls/hr IVPB Q8 [facility] PRN Reason: Protocol Stop: 06/28/17 17:59 Last Admin: 06/27/17 17:29 Dose: 100 mls/hr Sodium Chloride (Sodium Chloride 0.9%) 1,000 mls @ 100 mls/hr IV .Q10H [facility] Stop: 06/28/17 13:42 Morphine Sulfate (Morphine) 2 mg IVP Q4 PRN PRN Reason: Pain, severe (8-10) Naloxone HCl (Narcan) 0.1 mg IVP Q2M PRN PRN Reason: Excess sedation Stop: 06/28/17 23:59 Ondansetron HCl (Zofran Inj) 4 mg IVP ONCE PRN PRN Reason: Nausea/Vomiting Ondansetron HCl (Zofran Inj) 4 mg IVP Q6 PRN PRN Reason: Nausea/Vomiting Last Admin: 06/27/17 20:11 Dose: 4 mg Oxycodone/Acetaminophen (Percocet 5/325 Mg Tab) 2 tab PO Q4 PRN PRN Reason: Pain, moderate (4-7) Stop: 06/30/17 13:42 - Labs Labs: 06/27/17 08:30 06/27/17 08:57 PT 11.3 Seconds (9.8-13.1) 06/25/17 14:39 INR 1.0 (0.9-1.2) 06/25/17 14:39 APTT 32.5 Seconds (25.6-37.1) 06/25/17 14:39 - Constitutional Appears: Well, No Acute Distress - Head Exam Head Exam: ATRAUMATIC, NORMOCEPHALIC - Respiratory Exam Respiratory Exam: Clear to Ausculation Bilateral, NORMAL BREATHING PATTERN - Cardiovascular Exam Cardiovascular Exam: REGULAR RHYTHM, +S1, +S2 - GI/Abdominal Exam GI & Abdominal Exam: Soft, Normal Bowel Sounds - Extremities Exam Extremities Exam: Tenderness (left hip; s/p L hip replacement) - Neurological Exam Neurological Exam: Alert, Oriented x3 Additional comments: Neurovascular exam intact - Psychiatric Exam Psychiatric exam: Normal Affect - Skin Skin Exam: Dry, Normal Color, Warm Assessment and Plan (1) Fracture of femoral neck, left Assessment & Plan: S/p left total hip replacement Pain control maintain IVF DVT prophylaxis PT/OT monitor labs Status: Acute (2) Essential (primary) hypertension Status: Chronic (3) Leukocytosis (leucocytosis) Assessment & Plan: Improving Status: Acute
[2017-06-28] MEDS: ceFAZolin 2 GM in Sodium Chloride 0.9% 100 ML IVPB SCH ×3 (01:26→16:26)
[2017-06-28] MEDS: Sodium Chloride 0.9% 1,000 ML IV SCH ×2 (01:29→10:37)
[2017-06-28 06:44] LABS: MEAN CORPUSCULAR HEMOGLOBIN 30.3 pg (27.0-31.0); MEAN CORPUSCULAR HGB CONC 33.3 g/dL (33.0-37.0); RBC 3.3 Mil/uL (4.40-5.90); RED CELL DISTRIBUTION WIDTH 12.6 % (11.5-14.5); WHITE BLOOD COUNT 18.5 K/uL (4.8-10.8)
[2017-06-28 07:03] LABS: BLOOD UREA NITROGEN 35 mg/dl (9-20); CALCIUM 8.1 mg/dL (8.4-10.2); GFR AFRICAN-AMERICAN > 60; GFR NON-AFRICAN AMERICAN > 60
[2017-06-28] MEDS: Enoxaparin 40 mg Syringe SC SCH (09:23)
--- NOTE | 2017-06-28 09:39 | CP.PCM.PN ---
Subjective - Date & Time of Evaluation Date of Evaluation: 06/28/17 Time of Evaluation: 07:30 - Subjective Subjective: Patient was seen and examined at bedside. His pain is well controlled. Tolerating small amounts of diet. No acute events overnight. Objective - Vital Signs/Intake and Output Vital Signs (last 24 hours): Temp Pulse Resp BP Pulse Ox 98.2 F 87 20 101/67 96 06/28/17 07:51 06/28/17 07:51 06/28/17 07:51 06/28/17 07:51 06/28/17 07:51 Intake and Output: 06/28/17 06/28/17 06:59 18:59 Output Total 150 Balance -150 - Medications Medications: Current Medications Acetaminophen (Tylenol 325mg Tab) 650 mg PO Q6 PRN PRN Reason: Pain, Mild (1-3) Diphenhydramine HCl (Benadryl) 25 mg IVP Q6 PRN PRN Reason: Itching / Pruritus Stop: 06/28/17 23:59 Docusate Sodium (Colace) 100 mg PO BID [facility] Last Admin: 06/28/17 09:23 Dose: 100 mg Enoxaparin Sodium (Lovenox) 40 mg SC DAILY [facility] PRN Reason: Protocol Last Admin: 06/28/17 09:23 Dose: 40 mg Hydromorphone HCl (Dilaudid) 2 mg IVP Q4 PRN PRN Reason: Pain, severe (8-10) Last Admin: 06/27/17 06:14 Dose: 2 mg Hydromorphone HCl (Dilaudid 0.2 Mg/Ml Mower Mechanic) 0 mg IV PRN PRN; Protocol PRN Reason: Pain, severe (8-10) Stop: 06/28/17 23:59 Last Admin: 06/27/17 15:15 Dose: 0 mg Cefazolin Sodium 2 gm/ Sodium (Chloride) 100 mls @ 100 mls/hr IVPB Q8 [facility] PRN Reason: Protocol Stop: 06/28/17 17:59 Last Admin: 06/28/17 09:23 Dose: 100 mls/hr Sodium Chloride (Sodium Chloride 0.9%) 1,000 mls @ 100 mls/hr IV .Q10H [facility] Stop: 06/28/17 13:42 Last Admin: 06/28/17 01:29 Dose: 100 mls/hr Morphine Sulfate (Morphine) 2 mg IVP Q4 PRN PRN Reason: Pain, severe (8-10) Naloxone HCl (Narcan) 0.1 mg IVP Q2M PRN PRN Reason: Excess sedation Stop: 06/28/17 23:59 Ondansetron HCl (Zofran Inj) 4 mg IVP ONCE PRN PRN Reason: Nausea/Vomiting Ondansetron HCl (Zofran Inj) 4 mg IVP Q6 PRN PRN Reason: Nausea/Vomiting Last Admin: 06/27/17 20:11 Dose: 4 mg Oxycodone/Acetaminophen (Percocet 5/325 Mg Tab) 2 tab PO Q4 PRN PRN Reason: Pain, moderate (4-7) Stop: 06/30/17 13:42 - Labs Labs: 06/28/17 05:15 06/28/17 05:15 PT 11.3 Seconds (9.8-13.1) 06/25/17 14:39 INR 1.0 (0.9-1.2) 06/25/17 14:39 APTT 32.5 Seconds (25.6-37.1) 06/25/17 14:39 - Extremities Exam Additional comments: L hip: Dressings clean dry and intact. Mild to mod swelling secondary to surgery. Mild tenderness. Sensation intact. SP/DP/TN. Motor intact EHL/FHL/TA/ gastroc, pedal pulses intact. Calves soft and NT b/l Assessment and Plan (1) Fracture of femoral neck, left Assessment & Plan: Patient is POD#1 from L JAMIR doing well. -Pain control, recommend d/c PRICING SUPERVISOR and start prn meds -cont. DVT ppx -complete abx doses -PT/OT WBAT -will d/w Dr. Montoya Status: Acute
--- NOTE | 2017-06-28 10:39 | CP.PCM.PN ---
Subjective - Date & Time of Evaluation Date of Evaluation: 06/28/17 Time of Evaluation: 09:00 - Subjective Subjective: NO CHEST PAIN OR SOB HAS SURGICAL SITE PAIN Objective - Vital Signs/Intake and Output Vital Signs (last 24 hours): Temp Pulse Resp BP Pulse Ox 98.2 F 87 20 101/67 96 06/28/17 07:51 06/28/17 07:51 06/28/17 07:51 06/28/17 07:51 06/28/17 07:51 Intake and Output: 06/28/17 06/28/17 06:59 18:59 Output Total 150 Balance -150 - Medications Medications: Current Medications Acetaminophen (Tylenol 325mg Tab) 650 mg PO Q6 PRN PRN Reason: Pain, Mild (1-3) Diphenhydramine HCl (Benadryl) 25 mg IVP Q6 PRN PRN Reason: Itching / Pruritus Stop: 06/28/17 23:59 Docusate Sodium (Colace) 100 mg PO BID [facility] Last Admin: 06/28/17 09:23 Dose: 100 mg Enoxaparin Sodium (Lovenox) 40 mg SC DAILY [facility]IP PRN Reason: Protocol Last Admin: 06/28/17 09:23 Dose: 40 mg Ferrous Sulfate (Feosol) 325 mg PO BID [facility] Hydromorphone HCl (Dilaudid) 2 mg IVP Q4 PRN PRN Reason: Pain, severe (8-10) Last Admin: 06/28/17 09:35 Dose: 2 mg Cefazolin Sodium 2 gm/ Sodium (Chloride) 100 mls @ 100 mls/hr IVPB Q8 [facility] PRN Reason: Protocol Stop: 06/28/17 17:59 Last Admin: 06/28/17 09:23 Dose: 100 mls/hr Sodium Chloride (Sodium Chloride 0.9%) 1,000 mls @ 100 mls/hr IV .Q10H [facility] Stop: 06/28/17 13:42 Last Admin: 06/28/17 01:29 Dose: 100 mls/hr Naloxone HCl (Narcan) 0.1 mg IVP Q2M PRN PRN Reason: Excess sedation Stop: 06/28/17 23:59 Ondansetron HCl (Zofran Inj) 4 mg IVP ONCE PRN PRN Reason: Nausea/Vomiting Ondansetron HCl (Zofran Inj) 4 mg IVP Q6 PRN PRN Reason: Nausea/Vomiting Last Admin: 06/27/17 20:11 Dose: 4 mg Oxycodone/Acetaminophen (Percocet 5/325 Mg Tab) 2 tab PO Q4 PRN PRN Reason: Pain, moderate (4-7) Stop: 06/30/17 13:42 - Labs Labs: 06/28/17 05:15 06/28/17 05:15 PT 11.3 Seconds (9.8-13.1) 06/25/17 14:39 INR 1.0 (0.9-1.2) 06/25/17 14:39 APTT 32.5 Seconds (25.6-37.1) 06/25/17 14:39 - Respiratory Exam Respiratory Exam: Clear to Ausculation Bilateral - Cardiovascular Exam Cardiovascular Exam: REGULAR RHYTHM, +S1, +S2 - Additional Findings Additional findings: OR NOTES REVIEWED WITH TOTAL LHR Assessment and Plan - Assessment and Plan (Free Text) Assessment: LEFT HIP REPLACEMENT FOR FALL AND FRACTURE MILD HYPERTENSION WITH STABLE BLOOD PRESSURE SO FAR ON THIS HOSPITALIZATION OFF MEDCINES Plan: CONTINUE ANTIBIOTICS, LOVENOX AND PAIN MEDICATIONS FOR REHAB
[2017-06-28] MEDS ORDERED: Benzocaine/Menthol (Cepacol) Lozenge PO PRN (16:29)
--- NOTE | 2017-06-28 18:21 | CP.PCM.PN ---
Subjective - Date & Time of Evaluation Date of Evaluation: 06/28/17 Time of Evaluation: 16:55 - Subjective Subjective: Feels tired, s/p hip surgery, pain is well controlled. States has not slept in 3 days. Appetite not great today but denies nausea or vomiting. Denies fever, chills, cp or sob. States no BM since admission Was able to participate in PT today Objective - Vital Signs/Intake and Output Vital Signs (last 24 hours): Temp Pulse Resp BP Pulse Ox 99 F 85 18 114/70 94 L 06/28/17 16:03 06/28/17 16:03 06/28/17 16:03 06/28/17 16:03 06/28/17 16:03 Intake and Output: 06/28/17 06/28/17 06:59 18:59 Intake Total 950 Output Total 150 950 Balance -150 0 - Medications Medications: Current Medications Acetaminophen (Tylenol 325mg Tab) 650 mg PO Q6 PRN PRN Reason: Pain, Mild (1-3) Benzocaine/Menthol (Cepacol Sore Throat) 1 wendy PO Q4 PRN PRN Reason: Sore Throat Diphenhydramine HCl (Benadryl) 25 mg IVP Q6 PRN PRN Reason: Itching / Pruritus Stop: 06/28/17 23:59 Docusate Sodium (Colace) 100 mg PO BID [facility] Last Admin: 06/28/17 16:26 Dose: 100 mg Enoxaparin Sodium (Lovenox) 40 mg SC DAILY [facility] PRN Reason: Protocol Last Admin: 06/28/17 09:23 Dose: 40 mg Ferrous Sulfate (Feosol) 325 mg PO BID [facility] Last Admin: 06/28/17 16:26 Dose: 325 mg Hydromorphone HCl (Dilaudid) 2 mg IVP Q4 PRN PRN Reason: Pain, severe (8-10) Last Admin: 06/28/17 17:59 Dose: 2 mg Iron Sucrose 100 mg/ Sodium (Chloride) 105 mls @ 105 mls/hr IVPB DAILY [facility] Last Admin: 06/28/17 12:45 Dose: 105 mls/hr Naloxone HCl (Narcan) 0.1 mg IVP Q2M PRN PRN Reason: Excess sedation Stop: 06/28/17 23:59 Ondansetron HCl (Zofran Inj) 4 mg IVP ONCE PRN PRN Reason: Nausea/Vomiting Ondansetron HCl (Zofran Inj) 4 mg IVP Q6 PRN PRN Reason: Nausea/Vomiting Last Admin: 06/27/17 20:11 Dose: 4 mg Oxycodone/Acetaminophen (Percocet 5/325 Mg Tab) 2 tab PO Q4 PRN PRN Reason: Pain, moderate (4-7) Stop: 06/30/17 13:42 - Labs Labs: 06/28/17 05:15 06/28/17 05:15 PT 11.3 Seconds (9.8-13.1) 06/25/17 14:39 INR 1.0 (0.9-1.2) 06/25/17 14:39 APTT 32.5 Seconds (25.6-37.1) 06/25/17 14:39 - Constitutional Appears: Well, No Acute Distress - Head Exam Head Exam: ATRAUMATIC, NORMOCEPHALIC - ENT Exam ENT Exam: Mucous Membranes Moist - Respiratory Exam Respiratory Exam: Clear to Ausculation Bilateral, NORMAL BREATHING PATTERN - Cardiovascular Exam Cardiovascular Exam: REGULAR RHYTHM, +S1, +S2 - GI/Abdominal Exam GI & Abdominal Exam: Soft, Normal Bowel Sounds - Neurological Exam Neurological Exam: Alert, Oriented x3 Neuro motor strength exam: Left Lower Extremity: 4, Right Lower Extremity: 5 - Psychiatric Exam Psychiatric exam: Normal Affect, Normal Mood - Skin Skin Exam: Dry, Normal Color, Warm Assessment and Plan (1) Fracture of femoral neck, left Assessment & Plan: s/p L THR POD #1 DVT prophylaxis complete all doses of antibiotics Drop in hemoglobin will give Venofer and monitor am labs PT/OT IS Status: Acute (2) Essential (primary) hypertension Status: Chronic (3) Leukocytosis (leucocytosis) Assessment & Plan: most likely related to trauma and surgery will monitor Status: Acute
--- NOTE | 2017-06-29 04:25 | OP ---
PROCEDURE DATE: 06/27/2017 LOCATION: [facility]. PREOPERATIVE DIAGNOSES: 1. Displaced left subcapital femur fracture. 2. Preexisting primary osteoarthritis of the left hip. POSTOPERATIVE DIAGNOSES: 1. Displaced Garden's IV subcapital fracture of the left femur. 2. Preexisting osteoarthritis of the left hip. 3. Synovitis. OPERATIVE FINDINGS: As above plus synovitis of the left hip. OPERATION PERFORMED: 1. Left total hip replacement, anterior approach. 2. Femoral neck osteotomy. 3. Arthrotomy and synovectomy. 4. Autograft bone graft. 5. Computer navigation. SURGEON: Niko Montoya MD SAP PORTAL DEVELOPER: Maddie Bean, certified registered nursing assistant professor of economics. SECOND DIRECTOR OF CORPORATE SALES: Rishi Castellano PA-C. TYPE OF ANESTHESIA: General endotracheal and spinal anesthesia. ANESTHESIA ADMINISTERED BY: Dr. Ren. ESTIMATED BLOOD LOSS: Approximately 300 mL. BLOOD PRODUCTS: No blood products given. DRAINS: No drains necessary or employed. POSTOPERATIVE CONDITION: Stable. DATE OF SURGERY: 06/27/2017 TIME OF PROCEDURE: Incision time 10:35 a.m., time in the room, anesthesia induction time 09:12. OPERATIVE INDICATION: Josef Simms is a 61-year-old gentleman who was shopping at [employer] when an unmarked area rise obtained by sending stairs caused the patient to sustain a torsional injury slip and fall on the left upper extremity approximately 4-5 feet. The patient sustained a displaced subcapital fracture of the left hip, presented to the Emergency Room at [facility] in severe pain and presented with pain, restricted range of motion of the left hip and deformity in the left lower extremity. The patient stabilized, medical consultation was obtained from Dr. Aparicio. Pros, cons, risks and benefits of surgical approach were discussed. The possibility of mechanical failure, infection, thromboembolic disease, secondary or tertiary surgery was discussed. The concept that as a direct cause or result of the fall had a displaced femoral neck fracture. The branches of the circumflex vessel to the head the so-called retinacular and epiphyseal vessels are ruptured by definition; as a result, the chance of avascular necrosis is very high. Various options were discussed with the patient includin. Benign neglect. 2. Open reduction internal fixation. 3. Total hip replacement arthroplasty. The patient is very active and elected for the primary hip replacement arthroplasty. OPERATIVE INDICATIONS: As above. It should be noted that both these assistants were necessary to the furtherance of the procedure and the ultimate operative goal of correct component position and implantation. It should be noted that this injury was directly caused and related to the injury that this patient sustained when he fell from 4-5 feet while sending a platform to examine a chandelier at the [employer]. Unfortunately, this injury and the surgery therefrom are directly caused and related to the injury that this patient had sustained at [facility] when he arose the movable staircase, which was not appropriately marked and monitored for evaluation of the chandelier product. OPERATIVE PROCEDURE: After having obtained informed consent in the above fashion, after having identified side, site and procedure and critical pause/time-out; after the satisfactory induction of spinal and general anesthesia by Dr. Ren, after having identified side, site and procedure in a critical pause/time-out, the patient identified as Josef Simms in the supine position with all bony prominences well padded, the patient's left lower extremity is placed in the [facility] traction positioner. Under the surgeon's direction, the fluoroscope was positioned, video images were generated, therapeutic decisions were made therefrom, two turns, a fine traction was applied. After sterilely prepping and draping, after having identified side, site and procedure and a critical pause/time-out after positioning the fluoroscope and the [employer] computer navigation system, the patient identified as Josef Simms. He is prepared for the anterior approach mini incision computer navigated hip replacement surgery. An incision was described one fingerbreadth distal to the ASIS and four fingerbreadths distal to that, three fingerbreadths posteriorly, an incision was described superficial to the tensor fascia femoris muscle again which were essentially three fingerbreadths, 3 cm posterior to the ASIS. The skin incision was carried down through the skin and subcutaneous tissue. Hemostasis was controlled with the Aquamantys. The fascia superficial to this tensor fascia femoris was divided. The tensor fascia femoris muscle was carefully protected and the plane was developed to take the tensor fascia femoris muscle down from its investing fascia. This was accomplished with an Allis clamp and with blunt finger dissection. The modified Saeid Medacta retractor, these were placed vertically. At this point in time, the fascia at the posterior aspect of the rectus femoris is developed and hemostasis controlled with the Aquamantys. The Adson-Gigi retractor was placed deeper and horizontally posterior to the posterior aspect of the rectus femoris muscle. At this point in time, the reflected head of rectus femoris was identified. The fat superficial to the tendon was excised. The reflected head of rectus femoris was released. The deep fascial layer was released exposing the lateral femoral circumflex vessels and the anterior branch of the lateral femoral circumflex vessels. The vessels were controlled with Aquamantys and also controlled with suture ligature. The vessels were divided and at this point in time, the fat on the anterior aspect of the capsule was removed, with internal rotation of the lower extremity with traction, the dissection is carried out to the posterior aspect of the acetabulum, reflected head of rectus femoris having been released and anterior capsulotomy is now accomplished first with the lower extremity in internal rotation. The capsule was incised and a capsulotomy is carried down to the area of the intertrochanteric line, now with the lower extremity in external rotation, the capsule is elevated at the intertrochanteric line after the intertrochanteric tubercle was identified and the capsule was elevated intact. This was carried back all the way to expose the neck. At this point in time, the Medacta retractors, Hohmann retractors were placed about the neck. The deep Charnley retractor was placed after the modified Adson-Gigi had been removed. The femoral neck osteotomy was carefully planned and therefore deserves a separate code. It was planned intraoperatively and preoperatively virtually. The level of this osteotomy was critical to leg lengths and this osteotomy is carefully planned both on plantar x-rays and with the computer 3-D representation virtually, therefore, the complexity of this osteotomy deserves an additional modifier as a separate procedure. The deep Charnley retractor having been placed and the femoral neck osteotomy accomplished, it should be noted that the preoperative planning was carried out for the level of the osteotomy and intraoperative planning was carried out with image intensification views. This was critical. The femoral neck was osteotomized with the leg down in external rotation, 1/2 inch straight osteotome was placed in the cut femoral neck and the head was delivered. At this point in time, the corkscrew was placed. The head and neck was impaled with the corkscrew and the head was removed after rotational turns to secure the corkscrew. The level of the osteotomy was found to be acceptable on image intensification. This having been accomplished, there was evidence of capsular contracture and the stigmata of arthritic change with osteophytes in the acetabulum. This having been accomplished, the labrum was excised. The position and status and habitus of the acetabulum confirmed the decision for total hip replacement a point which had been discussed with the patient preoperatively vis a vis and as compared with the bipolar arthroplasty. A portion of the transverse acetabular ligament was excised and arthrotomy and synovectomy was accomplished; at this point in time in the hip joint, arthrotomy and synovectomy was accomplished. The border was identified and incised and excised. Hemostasis controlled with the Aquamantys. Again, there was found to be confirmation of arthritic change in the acetabulum. This having been accomplished, the head was measured and the appropriate cup size was measured to 54 mm. This having been accomplished, sequential reaming was accomplished in all three planes posteriorly, medially, and superiorly for approximately 45 degrees of abduction and 15 degrees of anteversion. Computer navigation was employed at this point in time. At one fingerbreadth posterior to the ASIS, a stab wound was accomplished with a #11 blade and two pins were placed to support the [employer] camera. The pins having been placed, the template was placed for the supporting camera mount. The camera was adjusted down the side of the extremity and the registration was accomplished with the left anterior superior iliac spine, the right anterior superior iliac spine. This having been accomplished, registration commences. At this point in time, the reaming having been accomplished as just described, the cup was placed at approximately 41 degrees of abduction and 17-18 degrees of anteversion. This was confirmed with navigation as the tracker and registration device was placed on both the reamer, the trial cup handle, and the definitive cup. Autograft bone grafting from the reamers is placed in the acetabulum and the Medacta cup 54 mm was impacted and found to be in excellent position at approximately 41 degrees of abduction and 17 degrees of anteversion. Arthrotomy of the hip and synovectomy having been accomplished, the reamings have been denuded of bone grafting, the 54-mm Medacta cup after trialing is impacted. Autograft bone grafting to the acetabulum had been accomplished prior to impaction of the definitive cup. The cup was found to be stable. Border osteophytes were debrided with a 1/2-inch curved osteotome. Attention was now turned to the femur. There were multiple contractures in the femur including the iliopsoas tendon, and with external rotation the bone hook was used to mobilize the femur. At this point in time, the pubofemoral ligament was divided with the lower extremity externally rotated to approximately 85 degrees. The pubofemoral ligament was placed on stretch and the pubofemoral ligament was divided. The iliopsoas tendon was divided and is released as well. This having been accomplished, the ischiofemoral ligament and the area of the piriformis fossa is debrided as well. Hemostasis controlled with the Aquamantys. This was a tedious portion of the procedure and at this point in time after the femur was mobilized, it was brought to approximately 170 degrees of external rotation at the hip, at this point is hyperextended, retractors were placed and the lower extremity was adducted by manipulating the AMIS traction device. The retractors were placed. The bridge of bone between the neck and the trochanter was removed using the box chisel and the bur. The bur was used to find the canal as the patient has extremely type A bone. The rasp was introduced and at this time sequential broaching to a #5 femoral component was accomplished. This was found to be acceptable. A trialing was accomplished with a #4 broach, but the #5 broach is more appropriate with a standard neck and 28 mm head with a 54 mm outer bearing for the dual mobility construct. The hip was reduced, found to be stable in all planes. The wound was thoroughly irrigated. It should be noted that bone graft was then applied to the femur for a tight and secure interference fit. The #5 collarless Medacta stem had been introduced with a neutral ceramic head and 54 mm outer bearing. The hip was reduced, found to be stable in all planes. Verification of position is offered on image intensification views. The [employer] had verified the position of the cup and at this point in time, the pins were removed and the navigation device is dismantled and removed from the operative field. Verification of position was offered on AP image intensification views. Position was found to be excellent. Closure was in layers with 0 Quill for the fascia of the tensor fascia femoris, followed by Vicryl, followed by nathan. Hemostasis had been controlled with the Aquamantys. Thrombin and Gelfoam was employed as well as FloSeal. Compression dressing was applied. Postoperative x-rays were accomplished which revealed excellent position of the construct. The patient's neurocirculatory status was intact in recovery. Niko Montoya MD
[2017-06-29 06:53] LABS: BASO % 0.2 % (0.0-2.0); EOS % 0.3 % (0.0-4.0); HEMOGLOBIN 8.1 g/dL (12.0-18.0); LYMPH # 1.4 K/uL (1.0-4.3); LYMPH % 8.3 % (20.0-40.0); MEAN CELL VOLUME 88.2 fl (80.0-94.0); MEAN CORPUSCULAR HEMOGLOBIN 31.3 pg (27.0-31.0); MEAN CORPUSCULAR HGB CONC 35.5 g/dL (33.0-37.0); MEAN PLATELET VOLUME 10.7 fl (7.2-11.7); MONO # 2.4 K/uL (0.0-0.8); MONO % 14.5 % (0.0-10.0); NEUT # 12.5 K/uL (1.8-7.0); NEUT % 76.7 % (50.0-75.0); PLATELET COUNT 144 K/uL (130-400); RED CELL DISTRIBUTION WIDTH 12.5 % (11.5-14.5); WHITE BLOOD COUNT 16.3 K/uL (4.8-10.8)
[2017-06-29 07:09] LABS: ALBUMIN 3.1 g/dL (3.5-5.0); ALT/SGPT 44 U/L (21-72); AST/SGOT 107 U/L (17-59); BLOOD UREA NITROGEN 25 mg/dl (9-20); CALCIUM 8.5 mg/dL (8.4-10.2); GFR AFRICAN-AMERICAN > 60; GFR NON-AFRICAN AMERICAN > 60
--- NOTE | 2017-06-29 08:53 | CP.PCM.PN ---
Subjective - Date & Time of Evaluation Date of Evaluation: 06/29/17 Time of Evaluation: 07:30 - Subjective Subjective: Patient was seen and examined at bedside comfortable. Pain is better controlled today. Karina diet. No acute events overnight. Objective - Vital Signs/Intake and Output Vital Signs (last 24 hours): Temp Pulse Resp BP Pulse Ox 98.5 F 79 20 106/67 96 06/29/17 07:48 06/29/17 07:48 06/29/17 07:48 06/29/17 07:48 06/29/17 07:48 - Medications Medications: Current Medications Acetaminophen (Tylenol 325mg Tab) 650 mg PO Q6 PRN PRN Reason: Pain, Mild (1-3) Benzocaine/Menthol (Cepacol Sore Throat) 1 wendy PO Q4 PRN PRN Reason: Sore Throat Docusate Sodium (Colace) 100 mg PO BID [facility] Last Admin: 06/28/17 16:26 Dose: 100 mg Ferrous Sulfate (Feosol) 325 mg PO BID [facility] Last Admin: 06/28/17 16:26 Dose: 325 mg Hydromorphone HCl (Dilaudid) 2 mg IVP Q4 PRN PRN Reason: Pain, severe (8-10) Last Admin: 06/29/17 03:36 Dose: 2 mg Iron Sucrose 100 mg/ Sodium (Chloride) 105 mls @ 105 mls/hr IVPB DAILY [facility] Last Admin: 06/28/17 12:45 Dose: 105 mls/hr Ondansetron HCl (Zofran Inj) 4 mg IVP ONCE PRN PRN Reason: Nausea/Vomiting Ondansetron HCl (Zofran Inj) 4 mg IVP Q6 PRN PRN Reason: Nausea/Vomiting Last Admin: 06/27/17 20:11 Dose: 4 mg Oxycodone/Acetaminophen (Percocet 5/325 Mg Tab) 2 tab PO Q4 PRN PRN Reason: Pain, moderate (4-7) Stop: 06/30/17 13:42 - Labs Labs: 06/29/17 05:25 06/29/17 05:25 PT 11.3 Seconds (9.8-13.1) 06/25/17 14:39 INR 1.0 (0.9-1.2) 06/25/17 14:39 APTT 32.5 Seconds (25.6-37.1) 06/25/17 14:39 - Extremities Exam Additional comments: L hip: Dressings intact with mild serosang drainage most likely from ruptured blisters from adhesive dressings. Dressings removed reveling wound clean and intact with nathan. Mild to mod swelling secondary to surgery. Mild tenderness. Sensation intact. SP/DP/TN. Motor intact EHL/FHL/TA/gastroc, pedal pulses intact. Calves soft and NT b/l Assessment and Plan (1) Fracture of femoral neck, left Assessment & Plan: Patient is POD#2 from L JAMIR -HGB decreased, we will transfuse patient this AM and hold Lovenox -Pain controlled -Ice L thigh -PT/OT WBAT -d/c planning -will d/w Dr. Montoya Status: Acute
[2017-06-29 09:11] LABS: EOSINOPHIL 1 % (0-7); LYMPHOCYTE 10 % (20-50); MONOCYTE 11 % (0-10); NEUTROPHIL 78 % (42-75); PLATELET ESTIMATE NORMAL (NORMAL); TOTAL CELLS COUNTED 100
[2017-06-29 09:12] LABS: HYPOCHROMIC MODERATE; LARGE PLATELETS PRESENT
--- NOTE | 2017-06-29 11:48 | CP.PCM.PN ---
Subjective - Date & Time of Evaluation Date of Evaluation: 06/29/17 Time of Evaluation: 09:45 - Subjective Subjective: NO CHEST PAIN OR SOB LESS SURGICAL SITE PAIN TODAY Objective - Vital Signs/Intake and Output Vital Signs (last 24 hours): Temp Pulse Resp BP Pulse Ox 98.5 F 94 H 20 118/62 96 06/29/17 07:48 06/29/17 09:30 06/29/17 07:48 06/29/17 09:30 06/29/17 09:30 - Medications Medications: Current Medications Acetaminophen (Tylenol 325mg Tab) 650 mg PO Q6 PRN PRN Reason: Pain, Mild (1-3) Benzocaine/Menthol (Cepacol Sore Throat) 1 wendy PO Q4 PRN PRN Reason: Sore Throat Docusate Sodium (Colace) 100 mg PO BID [facility] Last Admin: 06/29/17 08:58 Dose: 100 mg Ferrous Sulfate (Feosol) 325 mg PO BID [facility] Last Admin: 06/29/17 08:58 Dose: 325 mg Hydromorphone HCl (Dilaudid) 2 mg IVP Q4 PRN PRN Reason: Pain, severe (8-10) Last Admin: 06/29/17 03:36 Dose: 2 mg Ondansetron HCl (Zofran Inj) 4 mg IVP ONCE PRN PRN Reason: Nausea/Vomiting Ondansetron HCl (Zofran Inj) 4 mg IVP Q6 PRN PRN Reason: Nausea/Vomiting Last Admin: 06/27/17 20:11 Dose: 4 mg Oxycodone/Acetaminophen (Percocet 5/325 Mg Tab) 2 tab PO Q4 PRN PRN Reason: Pain, moderate (4-7) Stop: 06/30/17 13:42 - Labs Labs: 06/29/17 05:25 06/29/17 05:25 PT 11.3 Seconds (9.8-13.1) 06/25/17 14:39 INR 1.0 (0.9-1.2) 06/25/17 14:39 APTT 32.5 Seconds (25.6-37.1) 06/25/17 14:39 - Respiratory Exam Respiratory Exam: Clear to Ausculation Bilateral - Cardiovascular Exam Cardiovascular Exam: REGULAR RHYTHM, +S1, +S2 Assessment and Plan - Assessment and Plan (Free Text) Assessment: STABLE POST OP COURSE Plan: CONTINUE PAIN MEDS FOR REHAB
--- NOTE | 2017-06-29 18:03 | CP.PCM.PN ---
Subjective - Date & Time of Evaluation Date of Evaluation: 06/29/17 Time of Evaluation: 16:40 - Subjective Subjective: Sitting in chair receiving blood transfusion. Feels slightly better. Post-op pain controlled with pain meds. Concerned that his BP remains low. Denies cp, sob, f/c/n/v Objective - Vital Signs/Intake and Output Vital Signs (last 24 hours): Temp Pulse Resp BP Pulse Ox 98.5 F 94 H 20 118/62 96 06/29/17 07:48 06/29/17 09:30 06/29/17 07:48 06/29/17 09:30 06/29/17 09:30 - Medications Medications: Current Medications Acetaminophen (Tylenol 325mg Tab) 650 mg PO Q6 PRN PRN Reason: Pain, Mild (1-3) Benzocaine/Menthol (Cepacol Sore Throat) 1 wendy PO Q4 PRN PRN Reason: Sore Throat Docusate Sodium (Colace) 100 mg PO BID [facility] Last Admin: 06/29/17 16:29 Dose: 100 mg Ferrous Sulfate (Feosol) 325 mg PO BID [facility] Last Admin: 06/29/17 16:29 Dose: 325 mg Hydromorphone HCl (Dilaudid) 2 mg IVP Q4 PRN PRN Reason: Pain, severe (8-10) Last Admin: 06/29/17 16:09 Dose: 2 mg Ondansetron HCl (Zofran Inj) 4 mg IVP ONCE PRN PRN Reason: Nausea/Vomiting Ondansetron HCl (Zofran Inj) 4 mg IVP Q6 PRN PRN Reason: Nausea/Vomiting Last Admin: 06/27/17 20:11 Dose: 4 mg Oxycodone/Acetaminophen (Percocet 5/325 Mg Tab) 2 tab PO Q4 PRN PRN Reason: Pain, moderate (4-7) Stop: 06/30/17 13:42 - Labs Labs: 06/29/17 05:25 06/29/17 05:25 PT 11.3 Seconds (9.8-13.1) 06/25/17 14:39 INR 1.0 (0.9-1.2) 06/25/17 14:39 APTT 32.5 Seconds (25.6-37.1) 06/25/17 14:39 - Constitutional Appears: Well, No Acute Distress - Head Exam Head Exam: ATRAUMATIC - Respiratory Exam Respiratory Exam: Clear to Ausculation Bilateral, NORMAL BREATHING PATTERN - Cardiovascular Exam Cardiovascular Exam: REGULAR RHYTHM, +S1, +S2 - GI/Abdominal Exam GI & Abdominal Exam: Soft, Normal Bowel Sounds - Extremities Exam Additional comments: Moves all extremities. Neurovascular check intact - Neurological Exam Neurological Exam: Alert, Oriented x3 Neuro motor strength exam: Left Lower Extremity: 4, Right Lower Extremity: 5 - Psychiatric Exam Psychiatric exam: Normal Affect, Normal Mood - Skin Skin Exam: Normal Color, Warm Assessment and Plan (1) Fracture of femoral neck, left Assessment & Plan: S/p Left THR, POD #2 further drop in hgb, 8.1 today transfuse 2 units prbc Lovenox dc'd by ortho maintain scd/teds PT/OT am labs Status: Acute (2) Essential (primary) hypertension Status: Chronic (3) Leukocytosis (leucocytosis) Assessment & Plan: Most likely secondary to trauma and surgery Improving Status: Acute
[2017-06-30 06:40] LABS: BASO % 0.3 % (0.0-2.0); EOS # 0.1 K/uL (0.0-0.7); EOS % 0.7 % (0.0-4.0); HEMOGLOBIN 9.3 g/dL (12.0-18.0); LYMPH # 1.2 K/uL (1.0-4.3); LYMPH % 10.2 % (20.0-40.0); MEAN CELL VOLUME 88.7 fl (80.0-94.0); MEAN CORPUSCULAR HEMOGLOBIN 30.5 pg (27.0-31.0); MEAN CORPUSCULAR HGB CONC 34.5 g/dL (33.0-37.0); MEAN PLATELET VOLUME 10.5 fl (7.2-11.7); MONO # 1.4 K/uL (0.0-0.8); MONO % 11.3 % (0.0-10.0); NEUT # 9.5 K/uL (1.8-7.0); NEUT % 77.5 % (50.0-75.0); NRBC % 0.5 % (0.0-0.0); RBC 3.04 Mil/uL (4.40-5.90); RED CELL DISTRIBUTION WIDTH 12.7 % (11.5-14.5); WHITE BLOOD COUNT 12.2 K/uL (4.8-10.8)
[2017-06-30 06:57] LABS: ALBUMIN 3.1 g/dL (3.5-5.0); ALT/SGPT 57 U/L (21-72); AST/SGOT 123 U/L (17-59); BLOOD UREA NITROGEN 23 mg/dl (9-20); CALCIUM 8.3 mg/dL (8.4-10.2); GFR AFRICAN-AMERICAN > 60; GFR NON-AFRICAN AMERICAN > 60
--- NOTE | 2017-06-30 09:52 | CP.PCM.PN ---
Subjective - Date & Time of Evaluation Date of Evaluation: 06/30/17 Time of Evaluation: 09:00 - Subjective Subjective: NO COMPLAINTS LEFT HIP SURGICAL SITE PAIN IS LESS Objective - Vital Signs/Intake and Output Vital Signs (last 24 hours): Temp Pulse Resp BP Pulse Ox 97.4 F L 79 20 108/68 95 06/30/17 07:51 06/30/17 07:51 06/30/17 07:51 06/30/17 07:51 06/30/17 07:51 - Medications Medications: Current Medications Acetaminophen (Tylenol 325mg Tab) 650 mg PO Q6 PRN PRN Reason: Pain, Mild (1-3) Benzocaine/Menthol (Cepacol Sore Throat) 1 wendy PO Q4 PRN PRN Reason: Sore Throat Docusate Sodium (Colace) 100 mg PO BID [facility] Last Admin: 06/30/17 09:22 Dose: 100 mg Ferrous Sulfate (Feosol) 325 mg PO BID [facility] Last Admin: 06/30/17 09:23 Dose: 325 mg Hydromorphone HCl (Dilaudid) 2 mg IVP Q4 PRN PRN Reason: Pain, severe (8-10) Last Admin: 06/30/17 09:24 Dose: 2 mg Iron Sucrose 100 mg/ Sodium (Chloride) 105 mls @ 105 mls/hr IVPB DAILY [facility] Ondansetron HCl (Zofran Inj) 4 mg IVP ONCE PRN PRN Reason: Nausea/Vomiting Ondansetron HCl (Zofran Inj) 4 mg IVP Q6 PRN PRN Reason: Nausea/Vomiting Last Admin: 06/27/17 20:11 Dose: 4 mg Oxycodone/Acetaminophen (Percocet 5/325 Mg Tab) 2 tab PO Q4 PRN PRN Reason: Pain, moderate (4-7) Stop: 06/30/17 13:42 Last Admin: 06/29/17 19:53 Dose: 2 tab - Labs Labs: 06/30/17 05:45 06/30/17 05:45 PT 11.3 Seconds (9.8-13.1) 06/25/17 14:39 INR 1.0 (0.9-1.2) 06/25/17 14:39 APTT 32.5 Seconds (25.6-37.1) 06/25/17 14:39 - Respiratory Exam Respiratory Exam: Clear to Ausculation Bilateral - Cardiovascular Exam Cardiovascular Exam: REGULAR RHYTHM, +S1, +S2 Assessment and Plan - Assessment and Plan (Free Text) Assessment: FALL WITH LEFT HIP FRACTURE AND SURGICAL REPAIR STABLE Plan: CONTINUE PRESENT TREATMENT FOR REHAB
[2017-06-30] MEDS ORDERED: Povidone Iodine Topical 10% Sol ONE (12:52)
--- NOTE | 2017-06-30 15:29 | CP.PCM.PN ---
Subjective - Date & Time of Evaluation Date of Evaluation: 06/30/17 Time of Evaluation: 12:30 - Subjective Subjective: Patient was seen and examined at bedside comfortable. Pain is well controlled. Karina diet. Complaining of scrotal fullness this afternoon which is a new complaint. Objective - Vital Signs/Intake and Output Vital Signs (last 24 hours): Temp Pulse Resp BP Pulse Ox 97.4 F L 88 20 108/68 97 06/30/17 07:51 06/30/17 10:00 06/30/17 07:51 06/30/17 07:51 06/30/17 10:00 - Medications Medications: Current Medications Acetaminophen (Tylenol 325mg Tab) 650 mg PO Q6 PRN PRN Reason: Pain, Mild (1-3) Benzocaine/Menthol (Cepacol Sore Throat) 1 wendy PO Q4 PRN PRN Reason: Sore Throat Docusate Sodium (Colace) 100 mg PO BID [facility] Last Admin: 06/30/17 09:22 Dose: 100 mg Ferrous Sulfate (Feosol) 325 mg PO BID [facility] Last Admin: 06/30/17 09:23 Dose: 325 mg Hydromorphone HCl (Dilaudid) 2 mg IVP Q4 PRN PRN Reason: Pain, severe (8-10) Last Admin: 06/30/17 13:24 Dose: 2 mg Iron Sucrose 100 mg/ Sodium (Chloride) 105 mls @ 105 mls/hr IVPB DAILY [facility] Ondansetron HCl (Zofran Inj) 4 mg IVP ONCE PRN PRN Reason: Nausea/Vomiting Ondansetron HCl (Zofran Inj) 4 mg IVP Q6 PRN PRN Reason: Nausea/Vomiting Last Admin: 06/27/17 20:11 Dose: 4 mg - Labs Labs: 06/30/17 05:45 06/30/17 05:45 PT 11.3 Seconds (9.8-13.1) 06/25/17 14:39 INR 1.0 (0.9-1.2) 06/25/17 14:39 APTT 32.5 Seconds (25.6-37.1) 06/25/17 14:39 - Extremities Exam Additional comments: L hip: Dressings intact. Mod swelling secondary to surgery. Mild tenderness. Sensation intact. SP/DP/TN. Motor intact EHL/FHL/TA/gastroc, pedal pulses intact. Calves soft and NT b/l Assessment and Plan (1) Fracture of femoral neck, left Assessment & Plan: Patient is POD#3 from L JAMIR -HGB has increased slightly, we have recommended to transfuse 1 unit of PRBC's however the patient declines. We will monitor HGB kelly AM -Recommended urology consult for scrotal complaints, spoke with medicine -Ice L thigh -PT/OT WBAT -d/c planning to TCU -Case and plan d/w Dr. Montoya Status: Acute
--- NOTE | 2017-06-30 19:24 | US ---
EXAM: US Scrotum EXAM DATE/TIME: 06/30/2017 3:03 PM CLINICAL HISTORY: 61 years old, male; Signs and symptoms; Edema and swelling, testicles or scrotum; Additional info: R/O hydrocele TECHNIQUE: Real-time ultrasound of the scrotum with color Doppler and image documentation. COMPARISON: No relevant prior studies available. FINDINGS: Right testicle: Within normal limits in appearance. Measures 4.4 x 2.6 x 3.3 cm. Flow seen in the right testicle on color and Doppler imaging, with no evidence of torsion. No masses visualized. Right epididymis: Within normal limits in appearance. Head measures 1.2 cm maximally. Left testicle: Within normal limits in appearance. Measures 3.8 x 2.5 x 2.8 cm. Flow seen in the left testicle on color and Doppler imaging, with no evidence of torsion. No masses visualized. Left epididymis: Within normal limits in appearance. Hand measures 1.4 cm maximally. [place]: No significant hydrocele visualized. Varicocele: No definite varicocele visualized. Other findings: Thickening of the scrotal skin diffusely. IMPRESSION: Diffuse scrotal skin thickening. This could be secondary to cellulitis. Non-inflammatory causes of scrotal edema could also this appearance. Otherwise, no evidence of significant acute process. No evidence of testicular torsion, epididymitis, or significant hydrocele. See above for remaining findings.
[2017-06-30] MEDS ORDERED: Oxycodone/Acetaminophen 5/325 mg Tab PO PRN (19:39)
--- NOTE | 2017-06-30 21:48 | CP.PCM.PN ---
Subjective - Date & Time of Evaluation Date of Evaluation: 06/30/17 Time of Evaluation: 18:00 - Subjective Subjective: Feels slightly better. Pain to left hip controlled with pain medications C/o of scrotal swelling but no pain. Denies cp, sob, fever or chills. Was able to ambulate better with PT Objective - Vital Signs/Intake and Output Vital Signs (last 24 hours): Temp Pulse Resp BP Pulse Ox 99.2 F 90 20 112/70 96 06/30/17 15:57 06/30/17 15:57 06/30/17 15:57 06/30/17 15:57 06/30/17 15:57 - Medications Medications: Current Medications Acetaminophen (Tylenol 325mg Tab) 650 mg PO Q6 PRN PRN Reason: Pain, Mild (1-3) Benzocaine/Menthol (Cepacol Sore Throat) 1 wendy PO Q4 PRN PRN Reason: Sore Throat Docusate Sodium (Colace) 100 mg PO BID [facility] Last Admin: 06/30/17 17:08 Dose: 100 mg Ferrous Sulfate (Feosol) 325 mg PO BID [facility] Last Admin: 06/30/17 17:08 Dose: 325 mg Hydromorphone HCl (Dilaudid) 2 mg IVP Q4 PRN PRN Reason: Pain, severe (8-10) Last Admin: 06/30/17 21:13 Dose: 2 mg Ondansetron HCl (Zofran Inj) 4 mg IVP ONCE PRN PRN Reason: Nausea/Vomiting Ondansetron HCl (Zofran Inj) 4 mg IVP Q6 PRN PRN Reason: Nausea/Vomiting Last Admin: 06/27/17 20:11 Dose: 4 mg Oxycodone/Acetaminophen (Percocet 5/325 Mg Tab) 2 tab PO Q4 PRN PRN Reason: Pain, moderate (4-7) Stop: 07/04/17 09:00 - Labs Labs: 06/30/17 05:45 06/30/17 05:45 PT 11.3 Seconds (9.8-13.1) 06/25/17 14:39 INR 1.0 (0.9-1.2) 06/25/17 14:39 APTT 32.5 Seconds (25.6-37.1) 02/24/18 14:39 - Constitutional Appears: Well, No Acute Distress - Head Exam Head Exam: ATRAUMATIC, NORMOCEPHALIC - Respiratory Exam Respiratory Exam: Clear to Ausculation Bilateral, NORMAL BREATHING PATTERN - Cardiovascular Exam Cardiovascular Exam: REGULAR RHYTHM, +S1, +S2 - GI/Abdominal Exam GI & Abdominal Exam: Soft, Normal Bowel Sounds - Exam Exam: Scrotal Swelling External exam: Erythema - Extremities Exam Extremities Exam: Tenderness (left hip, operative site) - Neurological Exam Neurological Exam: Alert, Oriented x3 Neuro motor strength exam: Left Lower Extremity: 4, Right Lower Extremity: 5 - Psychiatric Exam Psychiatric exam: Normal Affect, Normal Mood - Skin Skin Exam: Normal Color, Warm Assessment and Plan (1) Fracture of femoral neck, left Assessment & Plan: S/p Left THR, POD #3 Hgb slightly improved to 9.3 Pt denied getting another unit of prbc per ortho recommendation scrotal swelling and erythema elevate scrotum urology consult PT/OT d/c planning Status: Acute (2) Essential (primary) hypertension Status: Chronic (3) Leukocytosis (leucocytosis) Assessment & Plan: Improving Status: Acute
[2017-07-01 06:42] LABS: BASO % 0.5 % (0.0-2.0); EOS # 0.1 K/uL (0.0-0.7); HEMOGLOBIN 9.7 g/dL (12.0-18.0); LYMPH # 1.5 K/uL (1.0-4.3); LYMPH % 13.6 % (20.0-40.0); MEAN CELL VOLUME 90.2 fl (80.0-94.0); MEAN CORPUSCULAR HEMOGLOBIN 31.3 pg (27.0-31.0); MEAN CORPUSCULAR HGB CONC 34.7 g/dL (33.0-37.0); MEAN PLATELET VOLUME 10.4 fl (7.2-11.7); MONO # 1.3 K/uL (0.0-0.8); MONO % 12.1 % (0.0-10.0); NEUT # 7.8 K/uL (1.8-7.0); NEUT % 72.8 % (50.0-75.0); NRBC % 0.2 % (0.0-0.0); RBC 3.11 Mil/uL (4.40-5.90); WHITE BLOOD COUNT 10.7 K/uL (4.8-10.8)
[2017-07-01 06:46] LABS: ALB/GLOB RATIO 0.9 (1.0-2.1); ALBUMIN 3.2 g/dL (3.5-5.0); ALT/SGPT 103 U/L (21-72); AST/SGOT 162 U/L (17-59); BLOOD UREA NITROGEN 22 mg/dl (9-20); CALCIUM 8.5 mg/dL (8.4-10.2); GFR AFRICAN-AMERICAN > 60; GFR NON-AFRICAN AMERICAN > 60
[2017-07-01] MEDS ORDERED: Povidone Iodine Topical 10% Sol ONE (07:51)
[2017-07-01 08:05] VITALS: BP 117/70; PULSE 79; RESP 20; TEMP 97.7; O2SAT 98
--- NOTE | 2017-07-01 09:01 | CP.PCM.PN ---
Subjective - Date & Time of Evaluation Date of Evaluation: 07/01/17 Time of Evaluation: 08:59 - Subjective Subjective: Patient seen and examined with Dr. Montoya. His pain is well controlled. Tolerating diet. Continues to have complaints of scrotal fullness. No acute events overnight. Objective - Vital Signs/Intake and Output Vital Signs (last 24 hours): Temp Pulse Resp BP Pulse Ox 97.7 F 79 20 117/70 98 07/01/17 08:04 07/01/17 08:04 07/01/17 08:04 07/01/17 08:04 07/01/17 08:04 - Medications Medications: Current Medications Acetaminophen (Tylenol 325mg Tab) 650 mg PO Q6 PRN PRN Reason: Pain, Mild (1-3) Benzocaine/Menthol (Cepacol Sore Throat) 1 wendy PO Q4 PRN PRN Reason: Sore Throat Docusate Sodium (Colace) 100 mg PO BID [facility] Last Admin: 06/30/17 17:08 Dose: 100 mg Ferrous Sulfate (Feosol) 325 mg PO BID [facility] Last Admin: 06/30/17 17:08 Dose: 325 mg Hydromorphone HCl (Dilaudid) 2 mg IVP Q4 PRN PRN Reason: Pain, severe (8-10) Last Admin: 07/01/17 05:17 Dose: 2 mg Ondansetron HCl (Zofran Inj) 4 mg IVP ONCE PRN PRN Reason: Nausea/Vomiting Ondansetron HCl (Zofran Inj) 4 mg IVP Q6 PRN PRN Reason: Nausea/Vomiting Last Admin: 06/27/17 20:11 Dose: 4 mg Oxycodone/Acetaminophen (Percocet 5/325 Mg Tab) 2 tab PO Q4 PRN PRN Reason: Pain, moderate (4-7) Stop: 07/04/17 09:00 - Labs Labs: 07/01/17 05:30 07/01/17 05:30 PT 11.3 Seconds (9.8-13.1) 06/25/17 14:39 INR 1.0 (0.9-1.2) 06/25/17 14:39 APTT 32.5 Seconds (25.6-37.1) 06/25/17 14:39 - Extremities Exam Additional comments: L hip: Dressings dry and intact. Dressings removed revealing wound clean, dry and intact with nathan. Mod swelling secondary to surgery. Mild tenderness. Sensation intact. SP/DP/TN. Motor intact EHL/FHL/TA/gastroc, pedal pulses intact. Calves soft and NT b/l Assessment and Plan (1) Fracture of femoral neck, left Assessment & Plan: Patient is POD#4 from [facility] -HGB has stabilized this AM -Dressing changed, wound cleaned with betadine, will change again as outpt/TCU -Continue Ice L thigh -encourage OOB -PT/OT WBAT -Clear to discharge from ortho s/p -Case and plan d/w Dr. Montoya Status: Acute
--- NOTE | 2017-07-01 10:36 | CP.PCM.PN ---
Subjective - Date & Time of Evaluation Date of Evaluation: 07/01/17 Time of Evaluation: 09:00 - Subjective Subjective: NO NEW COMPLAINTS FEELING BETTER Objective - Vital Signs/Intake and Output Vital Signs (last 24 hours): Temp Pulse Resp BP Pulse Ox 97.7 F 79 20 117/70 98 07/01/17 08:04 07/01/17 08:04 07/01/17 08:04 07/01/17 08:04 07/01/17 08:04 - Medications Medications: Current Medications Acetaminophen (Tylenol 325mg Tab) 650 mg PO Q6 PRN PRN Reason: Pain, Mild (1-3) Benzocaine/Menthol (Cepacol Sore Throat) 1 wendy PO Q4 PRN PRN Reason: Sore Throat Docusate Sodium (Colace) 100 mg PO BID [facility] Last Admin: 07/01/17 10:03 Dose: 100 mg Ferrous Sulfate (Feosol) 325 mg PO BID [facility] Last Admin: 07/01/17 10:03 Dose: 325 mg Hydromorphone HCl (Dilaudid) 2 mg IVP Q4 PRN PRN Reason: Pain, severe (8-10) Last Admin: 07/01/17 05:17 Dose: 2 mg Ondansetron HCl (Zofran Inj) 4 mg IVP ONCE PRN PRN Reason: Nausea/Vomiting Ondansetron HCl (Zofran Inj) 4 mg IVP Q6 PRN PRN Reason: Nausea/Vomiting Last Admin: 06/27/17 20:11 Dose: 4 mg Oxycodone/Acetaminophen (Percocet 5/325 Mg Tab) 2 tab PO Q4 PRN PRN Reason: Pain, moderate (4-7) Stop: 07/04/17 09:00 Last Admin: 07/01/17 10:02 Dose: 2 tab - Labs Labs: 07/01/17 05:30 07/01/17 05:30 PT 11.3 Seconds (9.8-13.1) 06/25/17 14:39 INR 1.0 (0.9-1.2) 06/25/17 14:39 APTT 32.5 Seconds (25.6-37.1) 06/25/17 14:39 - Respiratory Exam Respiratory Exam: Clear to Ausculation Bilateral - Cardiovascular Exam Cardiovascular Exam: REGULAR RHYTHM, +S1, +S2 Assessment and Plan - Assessment and Plan (Free Text) Assessment: S/P LEFT HIP REPLACEMENT MILD HYPERTENSION HISTORY-STABLE ON THIS ADMISSION Plan: FOR REHAB
--- NOTE | 2017-07-01 12:38 | CP.PCM.DIS ---
Provider - Provider Date of Admission: 06/25/17 15:04 Attending physician: Paulino Mcdaniels MD Time Spent in preparation of Discharge (in minutes): 35 Diagnosis - Discharge Diagnosis (1) Fracture of femoral neck, left Status: Acute Comment: S/P ORIF (2) Essential (primary) hypertension Status: Chronic (3) Leukocytosis (leucocytosis) Status: Resolved Comment: Recative Vs Monitor Infection Hospital Course - Lab Results Lab Results: Most Recent Lab Values WBC 10.7 K/uL (4.8-10.8) 07/01/17 05:30 RBC 3.11 Mil/uL (4.40-5.90) L 07/01/17 05:30 Hgb 9.7 g/dL (12.0-18.0) L 07/01/17 05:30 Hct 28.0 % (35.0-51.0) L 07/01/17 05:30 MCV 90.2 fl (80.0-94.0) 07/01/17 05:30 MCH 31.3 pg (27.0-31.0) H 07/01/17 05:30 MCHC 34.7 g/dL (33.0-37.0) 07/01/17 05:30 RDW 13.0 % (11.5-14.5) 07/01/17 05:30 Plt Count 183 K/uL (130-400) 07/01/17 05:30 MPV 10.4 fl (7.2-11.7) 07/01/17 05:30 Neut % (Auto) 72.8 % (50.0-75.0) 07/01/17 05:30 Lymph % (Auto) 13.6 % (20.0-40.0) L 07/01/17 05:30 [place] % (Auto) 12.1 % (0.0-10.0) H 07/01/17 05:30 Eos % (Auto) 1.0 % (0.0-4.0) 07/01/17 05:30 Baso % (Auto) 0.5 % (0.0-2.0) 07/01/17 05:30 Neut # (Auto) 7.8 K/uL (1.8-7.0) H 07/01/17 05:30 Lymph # (Auto) 1.5 K/uL (1.0-4.3) 07/01/17 05:30 [place] # (Auto) 1.3 K/uL (0.0-0.8) H 07/01/17 05:30 Eos # (Auto) 0.1 K/uL (0.0-0.7) 07/01/17 05:30 Baso # (Auto) 0.0 K/uL (0.0-0.2) 07/01/17 05:30 Neutrophils % (Manual) 78 % (42-75) H 06/29/17 05:25 Band Neutrophils % 20 % (0-2) H* 06/25/17 14:39 Lymphocytes % (Manual) 10 % (20-50) L 06/29/17 05:25 Reactive Lymphs % 3 % (0-0) H 06/25/17 14:39 Monocytes % (Manual) 11 % (0-10) H 06/29/17 05:25 Eosinophils % (Manual) 1 % (0-7) 06/29/17 05:25 Platelet Estimate Normal (NORMAL) 06/29/17 05:25 Large Platelets Present 06/29/17 05:25 Giant Platelets Present 06/25/17 14:39 RBC Morphology Normal (NORMAL) 06/25/17 14:39 Hypochromasia (manual) Moderate 06/29/17 05:25 Basophilic Stippling Slight 06/29/17 05:25 Macrocytosis (manual) Slight 06/25/17 14:39 Stomatocytes Slight 06/25/17 14:39 PT 11.3 Seconds (9.8-13.1) 06/25/17 14:39 INR 1.0 (0.9-1.2) 06/25/17 14:39 APTT 32.5 Seconds (25.6-37.1) 06/25/17 14:39 Sodium 134 mmol/l (132-148) 07/01/17 05:30 Potassium 4.1 MMOL/L (3.6-5.0) 07/01/17 05:30 Chloride 96 mmol/L (98-107) L 07/01/17 05:30 Carbon Dioxide 28 mmol/L (22-30) 07/01/17 05:30 Anion Gap 14 (10-20) 07/01/17 05:30 BUN 22 mg/dl (9-20) H 07/01/17 05:30 Creatinine 0.9 mg/dl (0.8-1.5) 07/01/17 05:30 Est GFR ( Amer) > 60 07/01/17 05:30 Est GFR (Non-Af Amer) > 60 07/01/17 05:30 Random Glucose 111 mg/dL (75-110) H 07/01/17 05:30 Calcium 8.5 mg/dL (8.4-10.2) 07/01/17 05:30 Total Bilirubin 1.2 mg/dl (0.2-1.3) 07/01/17 05:30 AST 162 U/L (17-59) H D 07/01/17 05:30 ALT 103 U/L (21-72) H D 07/01/17 05:30 Alkaline Phosphatase 60 U/L (38-126) 07/01/17 05:30 Total Protein 6.6 G/DL (6.3-8.2) 07/01/17 05:30 Albumin 3.2 g/dL (3.5-5.0) L 07/01/17 05:30 Globulin 3.4 gm/dL (2.2-3.9) 07/01/17 05:30 Albumin/Globulin Ratio 0.9 (1.0-2.1) L 07/01/17 05:30 Urine Color Yellow (YELLOW) 06/26/17 15:51 Urine Clarity Clear (Clear) 06/26/17 15:51 Urine pH 5.0 (5.0-8.0) 06/26/17 15:51 Ur Specific [place] 1.027 (1.003-1.030) 06/26/17 15:51 Urine Protein Negative mg/dL (NEGATIVE) 06/26/17 15:51 Urine Glucose (UA) Neg mg/dL (Normal) 06/26/17 15:51 Urine Ketones Negative mg/dL (NEGATIVE) 06/26/17 15:51 Urine Blood Negative (NEGATIVE) 06/26/17 15:51 Urine Nitrate Negative (NEGATIVE) 06/26/17 15:51 Urine Bilirubin Negative (NEGATIVE) 06/26/17 15:51 Urine Urobilinogen 0.2-1.0 mg/dL (0.2-1.0) 06/26/17 15:51 Ur Leukocyte Esterase Neg [place]/uL (Negative) 06/26/17 15:51 Urine RBC (Auto) < 1 /hpf (0-3) 06/26/17 15:51 Urine Microscopic WBC 2 /hpf (0-5) 06/26/17 15:51 Blood Type O POSITIVE 06/29/17 09:00 Blood Type Confirm O POSITIVE 06/25/17 20:25 Antibody Screen Negative 06/29/17 09:00 Crossmatch See Detail 06/29/17 09:00 BBK History Checked Patient has bt 06/29/17 09:00 - Hospital Course Hospital Course: A 61 year old male with a pmhx of HTN who was admitted following a fall from a 3 foot high platform at the [employer]. The patient fell on his left side and sustained a left femoral neck fracture. The patient underwent a left THR and is s/p POD #4 today. The patient had a drop in hgb following the surgery and was transfused a total of 2 units PRBC. The hgb improved today to 9.7. The patient was cleared for d/c today by ortho. The patient had c/o of scrotal swelling yesterday, ultrasound showed some edema, scrotal elevation helped with the swelling. The patient was seen and evaluated by urologist with no further intervention. The patient was transferred to TCU today for continued physical therapy. Discharge Exam - Head Exam Head Exam: ATRAUMATIC, NORMOCEPHALIC - Respiratory Exam Respiratory Exam: Clear to PA & Lateral, NORMAL BREATHING PATTERN - Cardiovascular Exam Cardiovascular Exam: REGULAR RHYTHM, +S1, +S2 - GI/Abdominal Exam GI & Abdominal Exam: Normal Bowel Sounds - Exam Exam: Scrotal Swelling (slight, improved with elevation) - Extremities Exam Extremities exam: tenderness Additional comments: Left hip area Dressed and splinted. - Neurological Exam Neurological exam: Alert, Oriented x3 - Psychiatric Exam Psychiatric exam: Normal Affect, Normal Mood - Skin Skin Exam: Dry, Normal Color, Warm Discharge Plan - Follow Up Plan Condition: STABLE Disposition: REHAB FACILITY/REHAB UNIT Instructions: Total Hip Replacement (DC)
== END 2017-07-01 11:30 | DRG 470 ==
LOC: H.ER 11:38 → H.ERHOLD 15:04 → H.MEDSURG1 17:49
PROVIDERS: ADMIT Internal Medicine; ATTEND Internal Medicine
PROC: 3E0234Z Introduction of Serum, Toxoid and Vaccine into Muscle, Percutaneous Approach (ICD-10-PCS; 2017-06-25)
PROC: 0SBB0ZZ Excision of Left Hip Joint, Open Approach (ICD-10-PCS; 2017-06-27)
PROC: 8E0YXBZ Computer Assisted Procedure of Lower Extremity (ICD-10-PCS; 2017-06-27)
PROC: 0SRB03A Replacement of Left Hip Joint with Ceramic Synthetic Substitute, Uncemented, Open Approach (ICD-10-PCS; principal; 2017-06-27 08:30)
DX: S72.012A Unspecified intracapsular fracture of left femur, initial encounter for closed fracture (principal); B19.20 Unspecified viral hepatitis C without hepatic coma; D72.829 Elevated white blood cell count, unspecified; M16.12 Unilateral primary osteoarthritis, left hip; Y93.89 Activity, other specified; Y92.513 Shop (commercial) as the place of occurrence of the external cause; W11.XXXA Fall on and from ladder, initial encounter; I10 Essential (primary) hypertension; M65.9 Synovitis and tenosynovitis, unspecified; N50.89 Other specified disorders of the male genital organs; Z23 Encounter for immunization; F17.210 Nicotine dependence, cigarettes, uncomplicated

== ENCOUNTER 2017-07-01 11:05 | Inpatient (IN) | payer OTHER ==
[2017-07-01 13:50] VITALS: BMI 29.9
[2017-07-01] MEDS: Oxycodone/Acetaminophen 5/325 mg Tab PO PRN ×2 (15:29→19:56)
[2017-07-02] MEDS: Oxycodone/Acetaminophen 5/325 mg Tab PO PRN ×4 (03:06→23:37)
--- NOTE | 2017-07-02 11:45 | CP.PCM.PN ---
Subjective - Date & Time of Evaluation Date of Evaluation: 07/02/17 Time of Evaluation: 11:30 - Subjective Subjective: S- pt in great spirits;Much improved!! Objective - Vital Signs/Intake and Output Vital Signs (last 24 hours): Temp Pulse Resp BP Pulse Ox 98.2 F 69 20 109/68 99 07/02/17 07:58 07/02/17 07:58 07/02/17 07:58 07/02/17 07:58 07/02/17 07:58 - Medications Medications: Current Medications Acetaminophen (Tylenol 325mg Tab) 650 mg PO Q6 PRN PRN Reason: Pain, Mild (1-3) Docusate Sodium (Colace) 100 mg PO BID [facility] Last Admin: 07/02/17 08:48 Dose: 100 mg Ferrous Sulfate (Feosol) 325 mg PO BID [facility] Last Admin: 07/02/17 08:46 Dose: 325 mg Oxycodone/Acetaminophen (Percocet 5/325 Mg Tab) 2 tab PO Q4 PRN PRN Reason: Pain, moderate (4-7) Stop: 07/04/17 13:55 Last Admin: 07/02/17 08:44 Dose: 2 tab - Additional Findings Additional findings: Objective systemic- wnl Musculoskekltal stance/gait- defrred L hip ROM restricted ( as expected) pt able to flex knee and tense quad musclew thigh relatively soft scrotum improved;decreased ecchmysis andswelling( pt sen by dr peñaloza) urology no drainage wound benign N/V intact no gross neuro deficits Assessment and Plan - Assessment and Plan (Free Text) Assessment: A - s/p ant approach L THR P- weigth bearfi ng to tolerance orthopedically stable
--- NOTE | 2017-07-02 23:37 | CP.PCM.HP ---
History of Present Illness - History of Present Illness History of Present Illness: Cc: Left total hip replacement A 61 year old male with a pmhx of HTN who incurred a fall on his left side while at the [employer] and suffered a fracture of the left femoral head. The patient was admitted at [facility] and underwent a left THR. The patient tolerated the procedure well. The patient had a drop in hemoglobin and was transfused 2 units prbc. The patient was then transferred to the transitional care unit for further rehabilitation. Patient denies cp, sob, fever, chills, nausea or vomiting. Has some incisional pain which is being relieved by pain medications. Denies decreased sensation or numbness to LLE. The patient had also reported some scrotal swelling which is being managed by scrotal elevation. Denies pain, dysuria or any other urinary symptoms. Present on Admission - Present on Admission Any Indicators Present on Admission: No Review of Systems - Review of Systems All systems: reviewed and no additional remarkable complaints except (as stated) - Constitutional Constitutional: As Per HPI - Cardiovascular Cardiovascular: As Per HPI - Respiratory Respiratory: As Per HPI - Musculoskeletal Musculoskeletal: As Per HPI, Limited Range of Motion, Stiffness - Neurological Neurological: As Per HPI Past Patient History - Infectious Disease Hx of Infectious Diseases: None - Past Medical History & Family History Past Medical History?: Yes - Past Social History Smoking Status: Never Smoked - CARDIAC Hx Hypertension: Yes - PULMONARY Hx Respiratory Disorders: No - NEUROLOGICAL Hx Neurological Disorder: No - HEENT Hx HEENT Problems: No - RENAL Hx Chronic Kidney Disease: No - ENDOCRINE/METABOLIC Hx Endocrine Disorders: No - HEMATOLOGICAL/ONCOLOGICAL Hx Blood Disorders: Yes (Hep C) - INTEGUMENTARY Hx Dermatological Problems: No - MUSCULOSKELETAL/RHEUMATOLOGICAL Hx Musculoskeletal Disorders: No Hx Falls: Yes (fell from ladder) - GASTROINTESTINAL Hx Gastrointestinal Disorders: No - GENITOURINARY/GYNECOLOGICAL Hx Genitourinary Disorders: No - PSYCHIATRIC Hx Substance Use: No - SURGICAL HISTORY Hx Surgeries: Yes Other/Comment: repair of Achilles tendon - ANESTHESIA Hx Anesthesia: Yes Hx Anesthesia Reactions: No Meds Allergies/Adverse Reactions: Allergies Allergy/AdvReac Type Severity Reaction Status Date / Time No Known Allergies Allergy Verified 06/25/17 11:54 Physical Exam - Constitutional Appears: Well, No Acute Distress - Head Exam Head Exam: ATRAUMATIC, NORMOCEPHALIC - Eye Exam Eye Exam: EOMI, Normal appearance Pupil Exam: NORMAL ACCOMODATION - ENT Exam ENT Exam: Mucous Membranes Moist - Neck Exam Neck exam: Positive for: Normal Inspection - Respiratory Exam Respiratory Exam: Clear to Auscultation Bilateral, NORMAL BREATHING PATTERN - Cardiovascular Exam Cardiovascular Exam: REGULAR RHYTHM, +S1, +S2 - GI/Abdominal Exam GI & Abdominal Exam: Normal Bowel Sounds, Soft - Rectal Exam Rectal Exam: Deferred - Exam Exam: Scrotal Swelling (slight) External exam: Erythema (slight) - Extremities Exam Extremities exam: Positive for: joint swelling (limited ROM left LE) - Back Exam Back exam: NORMAL INSPECTION - Neurological Exam Neurological exam: Alert, Oriented x3 - Psychiatric Exam Psychiatric exam: Normal Affect, Normal Mood - Skin Skin Exam: Normal Color, Warm Results - Vital Signs Recent Vital Signs: Last Vital Signs Temp 99.1 F 07/02/17 21:01 Pulse 88 07/02/17 21:01 Resp 20 07/02/17 21:01 BP 108/68 07/02/17 21:01 Pulse Ox 98 07/02/17 21:01 - Labs Result Diagrams: 07/04/17 06:00 Assessment & Plan (1) Status post total hip replacement, left Assessment and Plan: Physical therapy Occupational therapy Monitor labs on ferrous sulfate scrotal elevation ortho consult dvt prophylaxis - Lovenox Status: Acute Priority: High (2) Essential (primary) hypertension Status: Chronic Priority: Low
[2017-07-03] MEDS ORDERED: Home Med 1 UNIT PO SCH (09:00)
[2017-07-03] MEDS: Oxycodone/Acetaminophen 5/325 mg Tab PO PRN ×3 (09:37→22:35)
--- NOTE | 2017-07-03 22:08 | CP.PCM.PN ---
Subjective - Date & Time of Evaluation Date of Evaluation: 07/03/17 Time of Evaluation: 19:40 - Subjective Subjective: Has some incisional pain on left hip. Denies fever or chills Objective - Vital Signs/Intake and Output Vital Signs (last 24 hours): Temp Pulse Resp BP Pulse Ox 97.9 F 87 20 135/75 100 07/03/17 21:39 07/03/17 21:39 07/03/17 21:39 07/03/17 21:39 07/03/17 21:39 - Medications Medications: Current Medications Acetaminophen (Tylenol 325mg Tab) 650 mg PO Q6 PRN PRN Reason: Pain, Mild (1-3) Last Admin: 07/03/17 01:49 Dose: 650 mg Docusate Sodium (Colace) 100 mg PO BID [facility] Last Admin: 07/03/17 17:43 Dose: 100 mg Ferrous Sulfate (Feosol) 325 mg PO BID [facility] Last Admin: 07/03/17 17:43 Dose: 325 mg Lactulose (Enulose) 20 gm PO BID PRN PRN Reason: Constipation Last Admin: 07/03/17 08:10 Dose: 20 gm Oxycodone/Acetaminophen (Percocet 5/325 Mg Tab) 2 tab PO Q4 PRN PRN Reason: Pain, moderate (4-7) Stop: 07/04/17 13:55 Last Admin: 07/03/17 15:15 Dose: 2 tab - Constitutional Appears: Well, No Acute Distress - Head Exam Head Exam: ATRAUMATIC - Respiratory Exam Respiratory Exam: Clear to Ausculation Bilateral, NORMAL BREATHING PATTERN - Cardiovascular Exam Cardiovascular Exam: REGULAR RHYTHM, +S1, +S2 - GI/Abdominal Exam GI & Abdominal Exam: Soft, Normal Bowel Sounds - Neurological Exam Neurological Exam: Alert, Oriented x3 - Psychiatric Exam Psychiatric exam: Normal Affect, Normal Mood - Skin Skin Exam: Normal Color, Warm Assessment and Plan (1) Status post total hip replacement, left Status: Acute (2) Essential (primary) hypertension Status: Chronic - Assessment and Plan (Free Text) Plan: Physical therapy Occupational therapy Monitor labs continue all treatment scrotal elevation ortho consult dvt prophylaxis
[2017-07-04] MEDS: Oxycodone/Acetaminophen 5/325 mg Tab PO PRN ×4 (06:09→20:46)
[2017-07-04 06:36] LABS: HEMOGLOBIN 10.1 g/dL (12.0-18.0); MEAN CELL VOLUME 89.9 fl (80.0-94.0); MEAN CORPUSCULAR HEMOGLOBIN 30.2 pg (27.0-31.0); MEAN CORPUSCULAR HGB CONC 33.6 g/dL (33.0-37.0); RBC 3.36 Mil/uL (4.40-5.90); RED CELL DISTRIBUTION WIDTH 12.9 % (11.5-14.5); WHITE BLOOD COUNT 11.6 K/uL (4.8-10.8)
[2017-07-04 07:02] LABS: INR 1.2 (0.9-1.2)
--- NOTE | 2017-07-04 07:46 | CON ---
DATE: 07/01/2017 HISTORY OF PRESENT ILLNESS: This is a 61-year-old gentleman who I was called to evaluate because of some testicular redness and penile shaft ecchymosis. The patient had a recent left hip surgery and following surgery, he developed some minimal swelling of the bilateral scrotal area as well as some small amount of hematoma in the shaft of the penis. The patient has no difficulty voiding. He has not had this condition prior to the surgery. I sent the patient for a testicular sonogram and Doppler imaging, so the results have concluded that both right and left testicles were of normal size with no restrictive flow to the testicle on either side and no other masses were visualized. On physical examination, the skin rugae on the scrotum is well preserved, so the amount of swelling is mild at best. On the shaft of the penis, he has a small black and blue area considering a small hematoma, which is not unusual probably during manipulation. I do not find any significant pathology at this time that needs to be addressed. Considering that the ultrasound is confirming that there is no testicular pathology and the patient actually has no pain from the presence of this condition. I did advice him that it will take several weeks for that hematoma to resolve and the patient is okay with that. He has again no difficulty voiding. His only issue at this time is constipation, which he says he has had for approximately 1 week and that condition is being addressed at this time. Alethea Oconnell MD
[2017-07-04] MEDS: Enoxaparin 40 mg Syringe SC SCH (10:23)
--- NOTE | 2017-07-04 23:21 | CP.PCM.PN ---
Subjective - Date & Time of Evaluation Date of Evaluation: 07/04/17 Objective - Vital Signs/Intake and Output Vital Signs (last 24 hours): Temp Pulse Resp BP Pulse Ox 98.1 F 83 20 119/65 97 07/04/17 20:12 07/04/17 20:12 07/04/17 20:12 07/04/17 20:12 07/04/17 20:12 - Medications Medications: Current Medications Acetaminophen (Tylenol 325mg Tab) 650 mg PO Q6 PRN PRN Reason: Pain, Mild (1-3) Last Admin: 07/04/17 20:04 Dose: 650 mg Docusate Sodium (Colace) 100 mg PO BID [facility] Last Admin: 07/04/17 16:49 Dose: 100 mg Enoxaparin Sodium (Lovenox) 40 mg SC DAILY [facility] PRN Reason: Protocol Last Admin: 07/04/17 10:23 Dose: 40 mg Ferrous Sulfate (Feosol) 325 mg PO BID [facility] Last Admin: 07/04/17 16:49 Dose: 325 mg Lactulose (Enulose) 20 gm PO BID PRN PRN Reason: Constipation Last Admin: 07/03/17 08:10 Dose: 20 gm Oxycodone/Acetaminophen (Percocet 5/325 Mg Tab) 2 tab PO Q4 PRN PRN Reason: Pain, moderate (4-7) Stop: 07/07/17 16:47 Last Admin: 07/04/17 20:46 Dose: 2 tab - Labs Labs: 07/04/17 06:00 PT 13.0 Seconds (9.8-13.1) 07/04/17 06:00 INR 1.2 (0.9-1.2) 07/04/17 06:00
[2017-07-05] MEDS: Oxycodone/Acetaminophen 5/325 mg Tab PO PRN ×5 (03:58→23:53)
[2017-07-05] MEDS: Enoxaparin 40 mg Syringe SC SCH (08:48)
--- NOTE | 2017-07-05 12:47 | CP.PCM.CON ---
History of Present Illness - History of Present Illness History of Present Illness: 61 year old male status post fall, status post hip fracture admitted to [facility] Review of Systems - Musculoskeletal Musculoskeletal: Abnormal Gait Past Patient History - Infectious Disease Hx of Infectious Diseases: None - Past Medical History & Family History Past Medical History?: Yes - Past Social History Smoking Status: Never Smoked - CARDIAC Hx Hypertension: Yes - PULMONARY Hx Respiratory Disorders: No - NEUROLOGICAL Hx Neurological Disorder: No - HEENT Hx HEENT Problems: No - RENAL Hx Chronic Kidney Disease: No - ENDOCRINE/METABOLIC Hx Endocrine Disorders: No - HEMATOLOGICAL/ONCOLOGICAL Hx Blood Disorders: Yes (Hep C) - INTEGUMENTARY Hx Dermatological Problems: No - MUSCULOSKELETAL/RHEUMATOLOGICAL Hx Musculoskeletal Disorders: No Hx Falls: Yes (fell from ladder) - GASTROINTESTINAL Hx Gastrointestinal Disorders: No - GENITOURINARY/GYNECOLOGICAL Hx Genitourinary Disorders: No - PSYCHIATRIC Hx Substance Use: No - SURGICAL HISTORY Hx Surgeries: Yes Other/Comment: repair of Achilles tendon - ANESTHESIA Hx Anesthesia: Yes Hx Anesthesia Reactions: No Meds Allergies/Adverse Reactions: Allergies Allergy/AdvReac Type Severity Reaction Status Date / Time No Known Allergies Allergy Verified 06/25/17 11:54 - Medications Medications: Current Medications Acetaminophen (Tylenol 325mg Tab) 650 mg PO Q6 PRN PRN Reason: Pain, Mild (1-3) Last Admin: 07/04/17 20:04 Dose: 650 mg Docusate Sodium (Colace) 100 mg PO BID [facility] Last Admin: 07/05/17 08:48 Dose: 100 mg Enoxaparin Sodium (Lovenox) 40 mg SC DAILY [facility] PRN Reason: Protocol Last Admin: 07/05/17 08:48 Dose: 40 mg Ferrous Sulfate (Feosol) 325 mg PO BID [facility] Last Admin: 07/05/17 08:48 Dose: 325 mg Lactulose (Enulose) 20 gm PO BID PRN PRN Reason: Constipation Last Admin: 07/03/17 08:10 Dose: 20 gm Oxycodone/Acetaminophen (Percocet 5/325 Mg Tab) 2 tab PO Q4 PRN PRN Reason: Pain, moderate (4-7) Stop: 07/07/17 16:47 Last Admin: 07/05/17 09:35 Dose: 2 tab Physical Exam - Head Exam Head Exam: ATRAUMATIC, NORMAL INSPECTION, NORMOCEPHALIC - Eye Exam Eye Exam: EOMI, Normal appearance, PERRL Pupil Exam: NORMAL ACCOMODATION, PERRL - ENT Exam ENT Exam: Mucous Membranes Moist, Normal Exam - Neck Exam Neck exam: Positive for: Normal Inspection - Respiratory Exam Respiratory Exam: NORMAL BREATHING PATTERN - Cardiovascular Exam Cardiovascular Exam: REGULAR RHYTHM - GI/Abdominal Exam GI & Abdominal Exam: Normal Bowel Sounds - Rectal Exam Rectal Exam: NORMAL INSPECTION - Exam External exam: NORMAL EXTERNAL EXAM - Extremities Exam Extremities exam: Positive for: normal inspection - Back Exam Back exam: NORMAL INSPECTION - Neurological Exam Neurological exam: Alert, CN II-XII Intact, Normal Gait, Oriented x3, Reflexes Normal - Psychiatric Exam Psychiatric exam: Normal Affect, Normal Mood - Skin Additional comments: left leg weakness muscle strenght 3/5 Results - Vital Signs Recent Vital Signs: Last Vital Signs Temp 97.7 F 07/05/17 09:10 Pulse 82 07/05/17 11:10 Resp 20 07/05/17 09:10 BP 121/73 07/05/17 09:10 Pulse Ox 98 07/05/17 11:10 - Labs Result Diagrams: 07/04/17 06:00 Assessment & Plan (1) Femoral neck fracture Status: Acute (2) Fracture of femoral neck, left Assessment and Plan: plan for physical, occupationa, rec therapy program for range of motion, strenghtening, transfers and gait training Status: Acute (3) Essential (primary) hypertension Status: Chronic (4) Leukocytosis (leucocytosis) Status: Resolved
--- NOTE | 2017-07-05 12:51 | CP.PCM.PN ---
Subjective - Date & Time of Evaluation Date of Evaluation: 07/05/17 Time of Evaluation: 10:00 - Subjective Subjective: mild left leg discomfort no other complaints Objective - Vital Signs/Intake and Output Vital Signs (last 24 hours): Temp Pulse Resp BP Pulse Ox 97.7 F 82 20 121/73 98 07/05/17 09:10 07/05/17 11:10 07/05/17 09:10 07/05/17 09:10 07/05/17 11:10 - Medications Medications: Current Medications Acetaminophen (Tylenol 325mg Tab) 650 mg PO Q6 PRN PRN Reason: Pain, Mild (1-3) Last Admin: 07/04/17 20:04 Dose: 650 mg Docusate Sodium (Colace) 100 mg PO BID [facility] Last Admin: 07/05/17 08:48 Dose: 100 mg Enoxaparin Sodium (Lovenox) 40 mg SC DAILY [facility] PRN Reason: Protocol Last Admin: 07/05/17 08:48 Dose: 40 mg Ferrous Sulfate (Feosol) 325 mg PO BID [facility] Last Admin: 07/05/17 08:48 Dose: 325 mg Lactulose (Enulose) 20 gm PO BID PRN PRN Reason: Constipation Last Admin: 07/03/17 08:10 Dose: 20 gm Oxycodone/Acetaminophen (Percocet 5/325 Mg Tab) 2 tab PO Q4 PRN PRN Reason: Pain, moderate (4-7) Stop: 07/07/17 16:47 Last Admin: 07/05/17 09:35 Dose: 2 tab - Labs Labs: 07/04/17 06:00 PT 13.0 Seconds (9.8-13.1) 07/04/17 06:00 INR 1.2 (0.9-1.2) 07/04/17 06:00 - Head Exam Head Exam: ATRAUMATIC, NORMAL INSPECTION, NORMOCEPHALIC - Eye Exam Eye Exam: EOMI, Normal appearance, PERRL - ENT Exam ENT Exam: Mucous Membranes Moist, Normal Exam - Neck Exam Neck Exam: Full ROM, Normal Inspection. absent: Lymphadenopathy - Respiratory Exam Respiratory Exam: Clear to Ausculation Bilateral, NORMAL BREATHING PATTERN - Cardiovascular Exam Cardiovascular Exam: REGULAR RHYTHM, +S1, +S2. absent: Murmur - GI/Abdominal Exam GI & Abdominal Exam: Soft, Normal Bowel Sounds. absent: Tenderness - Rectal Exam Rectal Exam: NORMAL INSPECTION - Exam External exam: NORMAL EXTERNAL EXAM - Extremities Exam Extremities Exam: Full ROM, Normal Capillary Refill, Normal Inspection. absent : Joint Swelling, Pedal Edema - Back Exam Back Exam: NORMAL INSPECTION - Neurological Exam Neurological Exam: Alert, Awake Neuro motor strength exam: Left Upper Extremity: 4, Right Upper Extremity: 4, Left Lower Extremity: 3, Right Lower Extremity: 4 - Psychiatric Exam Psychiatric exam: Normal Affect, Normal Mood - Skin Skin Exam: Dry, Intact Assessment and Plan (1) Femoral neck fracture Assessment & Plan: physical, occuaptional, rec therapy conintinue to monitor skin, and Dc planning Status: Acute (2) Fracture of femoral neck, left Status: Acute (3) Essential (primary) hypertension Status: Chronic
--- NOTE | 2017-07-05 22:07 | CP.PCM.PN ---
Subjective - Date & Time of Evaluation Date of Evaluation: 07/05/17 Objective - Vital Signs/Intake and Output Vital Signs (last 24 hours): Temp Pulse Resp BP Pulse Ox 97.9 F 80 20 125/72 97 07/05/17 20:22 07/05/17 20:22 07/05/17 20:22 07/05/17 20:22 07/05/17 20:22 - Medications Medications: Current Medications Acetaminophen (Tylenol 325mg Tab) 650 mg PO Q6 PRN PRN Reason: Pain, Mild (1-3) Last Admin: 07/04/17 20:04 Dose: 650 mg Docusate Sodium (Colace) 100 mg PO BID [facility] Last Admin: 07/05/17 17:32 Dose: 100 mg Enoxaparin Sodium (Lovenox) 40 mg SC DAILY [facility] PRN Reason: Protocol Last Admin: 07/05/17 08:48 Dose: 40 mg Ferrous Sulfate (Feosol) 325 mg PO BID [facility] Last Admin: 07/05/17 17:32 Dose: 325 mg Lactulose (Enulose) 20 gm PO BID PRN PRN Reason: Constipation Last Admin: 07/03/17 08:10 Dose: 20 gm Oxycodone/Acetaminophen (Percocet 5/325 Mg Tab) 2 tab PO Q4 PRN PRN Reason: Pain, moderate (4-7) Stop: 07/07/17 16:47 Last Admin: 07/05/17 19:36 Dose: 2 tab - Labs Labs: 07/04/17 06:00 PT 13.0 Seconds (9.8-13.1) 07/04/17 06:00 INR 1.2 (0.9-1.2) 07/04/17 06:00
[2017-07-06] MEDS: Oxycodone/Acetaminophen 5/325 mg Tab PO PRN ×3 (04:05→20:23)
[2017-07-06] MEDS: Enoxaparin 40 mg Syringe SC SCH (09:34)
--- NOTE | 2017-07-06 10:22 | CP.PCM.PN ---
Subjective - Date & Time of Evaluation Date of Evaluation: 07/06/17 Time of Evaluation: 10:20 - Subjective Subjective: Patient seen and examined at bedside comfortable. He has no complaints of pain. Able to ambulate and work with PT without difficulties. No new complaints. Objective - Vital Signs/Intake and Output Vital Signs (last 24 hours): Temp Pulse Resp BP Pulse Ox 97.5 F L 79 20 128/69 97 07/06/17 08:38 07/06/17 08:38 07/06/17 08:38 07/06/17 08:38 07/06/17 08:38 - Medications Medications: Current Medications Acetaminophen (Tylenol 325mg Tab) 650 mg PO Q6 PRN PRN Reason: Pain, Mild (1-3) Last Admin: 07/04/17 20:04 Dose: 650 mg Docusate Sodium (Colace) 100 mg PO BID [facility] Last Admin: 07/06/17 09:33 Dose: 100 mg Enoxaparin Sodium (Lovenox) 40 mg SC DAILY [facility] PRN Reason: Protocol Last Admin: 07/06/17 09:34 Dose: 40 mg Ferrous Sulfate (Feosol) 325 mg PO BID [facility] Last Admin: 07/06/17 09:33 Dose: 325 mg Lactulose (Enulose) 20 gm PO BID PRN PRN Reason: Constipation Last Admin: 07/03/17 08:10 Dose: 20 gm Oxycodone/Acetaminophen (Percocet 5/325 Mg Tab) 2 tab PO Q4 PRN PRN Reason: Pain, moderate (4-7) Stop: 07/07/17 16:47 Last Admin: 07/06/17 04:05 Dose: 2 tab - Labs Labs: 07/04/17 06:00 PT 13.0 Seconds (9.8-13.1) 07/04/17 06:00 INR 1.2 (0.9-1.2) 07/04/17 06:00 - Extremities Exam Additional comments: L hip: minimal swelling, wound clean dry and intact with nathan, no drainage, sensation intact SP/DP/TN, motor intact EHL/FHL/TA/Gastroc/quad/HS/hip flex, pedal pulses intact, compartments soft/NT b/l Assessment and Plan (1) Fracture of femoral neck, left Assessment & Plan: Patient is POD#9 from [facility] doing well -PT/OT WBAT -will remove nathan 2 weeks postop -will follow while in house -case and plan d/w Dr. Montoya in agreement Status: Acute
--- NOTE | 2017-07-06 22:46 | CP.PCM.PN ---
Subjective - Date & Time of Evaluation Date of Evaluation: 07/06/17 Objective - Vital Signs/Intake and Output Vital Signs (last 24 hours): Temp Pulse Resp BP Pulse Ox 98.1 F 81 20 130/73 96 07/06/17 21:56 07/06/17 21:56 07/06/17 21:56 07/06/17 21:56 07/06/17 21:56 - Medications Medications: Current Medications Acetaminophen (Tylenol 325mg Tab) 650 mg PO Q6 PRN PRN Reason: Pain, Mild (1-3) Last Admin: 07/04/17 20:04 Dose: 650 mg Docusate Sodium (Colace) 100 mg PO BID [facility] Last Admin: 07/06/17 17:05 Dose: 100 mg Enoxaparin Sodium (Lovenox) 40 mg SC DAILY [facility] PRN Reason: Protocol Last Admin: 07/06/17 09:34 Dose: 40 mg Ferrous Sulfate (Feosol) 325 mg PO BID [facility] Last Admin: 07/06/17 17:05 Dose: 325 mg Lactulose (Enulose) 20 gm PO BID PRN PRN Reason: Constipation Last Admin: 07/06/17 17:06 Dose: 20 gm Oxycodone/Acetaminophen (Percocet 5/325 Mg Tab) 2 tab PO Q4 PRN PRN Reason: Pain, moderate (4-7) Stop: 07/07/17 16:47 Last Admin: 07/06/17 20:23 Dose: 2 tab - Labs Labs: 07/04/17 06:00 PT 13.0 Seconds (9.8-13.1) 07/04/17 06:00 INR 1.2 (0.9-1.2) 07/04/17 06:00
[2017-07-07] MEDS: Oxycodone/Acetaminophen 5/325 mg Tab PO PRN ×4 (00:30→23:53)
[2017-07-07] MEDS: Enoxaparin 40 mg Syringe SC SCH (08:55)
--- NOTE | 2017-07-07 22:50 | CP.PCM.PN ---
Subjective - Date & Time of Evaluation Date of Evaluation: 07/07/17 Time of Evaluation: 14:35 Objective - Vital Signs/Intake and Output Vital Signs (last 24 hours): Temp Pulse Resp BP Pulse Ox 98.2 F 83 20 127/78 98 07/07/17 22:06 07/07/17 22:06 07/07/17 22:06 07/07/17 22:06 07/07/17 22:06 - Medications Medications: Current Medications Acetaminophen (Tylenol 325mg Tab) 650 mg PO Q6 PRN PRN Reason: Pain, Mild (1-3) Last Admin: 07/04/17 20:04 Dose: 650 mg Docusate Sodium (Colace) 100 mg PO BID [facility] Last Admin: 07/07/17 17:06 Dose: 100 mg Enoxaparin Sodium (Lovenox) 40 mg SC DAILY [facility] PRN Reason: Protocol Last Admin: 07/07/17 08:55 Dose: 40 mg Ferrous Sulfate (Feosol) 325 mg PO BID [facility] Last Admin: 07/07/17 17:06 Dose: 325 mg Lactulose (Enulose) 20 gm PO BID PRN PRN Reason: Constipation Last Admin: 07/06/17 17:06 Dose: 20 gm Oxycodone/Acetaminophen (Percocet 5/325 Mg Tab) 2 tab PO Q4 PRN PRN Reason: Pain, moderate (4-7) Stop: 07/10/17 17:02 Last Admin: 07/07/17 19:51 Dose: 2 tab - Labs Labs: 07/04/17 06:00 PT 13.0 Seconds (9.8-13.1) 07/04/17 06:00 INR 1.2 (0.9-1.2) 07/04/17 06:00
[2017-07-08] MEDS: Oxycodone/Acetaminophen 5/325 mg Tab PO PRN ×2 (08:19→19:37)
[2017-07-08] MEDS: Enoxaparin 40 mg Syringe SC SCH (08:19)
--- NOTE | 2017-07-08 09:46 | CP.PCM.PN ---
Subjective - Date & Time of Evaluation Date of Evaluation: 07/08/17 Time of Evaluation: 08:00 - Subjective Subjective: Patient seen and examined at bedside. No complaints of pain. Working with PT without difficulty. No new complaints. Objective - Vital Signs/Intake and Output Vital Signs (last 24 hours): Temp Pulse Resp BP Pulse Ox 97.9 F 75 20 134/79 98 07/08/17 08:46 07/08/17 08:46 07/08/17 08:46 07/08/17 08:46 07/08/17 08:46 - Medications Medications: Current Medications Acetaminophen (Tylenol 325mg Tab) 650 mg PO Q6 PRN PRN Reason: Pain, Mild (1-3) Last Admin: 07/04/17 20:04 Dose: 650 mg Docusate Sodium (Colace) 100 mg PO BID [facility] Last Admin: 07/08/17 08:18 Dose: 100 mg Enoxaparin Sodium (Lovenox) 40 mg SC DAILY [facility] PRN Reason: Protocol Last Admin: 07/08/17 08:19 Dose: 40 mg Ferrous Sulfate (Feosol) 325 mg PO BID [facility] Last Admin: 07/08/17 08:18 Dose: 325 mg Lactulose (Enulose) 20 gm PO BID PRN PRN Reason: Constipation Last Admin: 07/06/17 17:06 Dose: 20 gm Oxycodone/Acetaminophen (Percocet 5/325 Mg Tab) 2 tab PO Q4 PRN PRN Reason: Pain, moderate (4-7) Stop: 07/10/17 17:02 Last Admin: 07/08/17 08:19 Dose: 2 tab - Labs Labs: 07/04/17 06:00 PT 13.0 Seconds (9.8-13.1) 07/04/17 06:00 INR 1.2 (0.9-1.2) 07/04/17 06:00 - Extremities Exam Additional comments: L hip: no swelling, wound clean dry and intact with nathan, no drainage, sensation intact SP/DP/TN, motor intact EHL/FHL/TA/Gastroc/quad/HS/hip flex, pedal pulses intact, compartments soft/NT b/l Assessment and Plan (1) Fracture of femoral neck, left Assessment & Plan: Patient is POD#11 from [facility] doing well -pt may shower -PT/OT WBAT -will remove nathan next week if in house -f/u in office on Tuesday -case and plan d/w Dr. Montoya in agreement Status: Acute
--- NOTE | 2017-07-08 23:24 | CP.PCM.PN ---
Subjective - Date & Time of Evaluation Date of Evaluation: 07/08/17 Time of Evaluation: 12:55 Objective - Vital Signs/Intake and Output Vital Signs (last 24 hours): Temp Pulse Resp BP Pulse Ox 98.1 F 82 20 147/87 98 07/08/17 19:42 07/08/17 19:42 07/08/17 19:42 07/08/17 19:42 07/08/17 19:42 - Medications Medications: Current Medications Acetaminophen (Tylenol 325mg Tab) 650 mg PO Q6 PRN PRN Reason: Pain, Mild (1-3) Last Admin: 07/04/17 20:04 Dose: 650 mg Docusate Sodium (Colace) 100 mg PO BID [facility] Last Admin: 07/08/17 17:42 Dose: 100 mg Enoxaparin Sodium (Lovenox) 40 mg SC DAILY [facility] PRN Reason: Protocol Last Admin: 07/08/17 08:19 Dose: 40 mg Ferrous Sulfate (Feosol) 325 mg PO BID [facility] Last Admin: 07/08/17 17:42 Dose: 325 mg Lactulose (Enulose) 20 gm PO BID PRN PRN Reason: Constipation Last Admin: 07/08/17 13:54 Dose: 20 gm Oxycodone/Acetaminophen (Percocet 5/325 Mg Tab) 2 tab PO Q4 PRN PRN Reason: Pain, moderate (4-7) Stop: 07/10/17 17:02 Last Admin: 07/08/17 19:37 Dose: 2 tab - Labs Labs: 07/04/17 06:00 PT 13.0 Seconds (9.8-13.1) 07/04/17 06:00 INR 1.2 (0.9-1.2) 07/04/17 06:00
[2017-07-09] MEDS: Oxycodone/Acetaminophen 5/325 mg Tab PO PRN ×4 (02:17→23:41)
[2017-07-09] MEDS: Enoxaparin 40 mg Syringe SC SCH (08:35)
--- NOTE | 2017-07-10 00:40 | CP.PCM.PN ---
Subjective - Date & Time of Evaluation Date of Evaluation: 07/09/17 Time of Evaluation: 17:45 Objective - Vital Signs/Intake and Output Vital Signs (last 24 hours): Temp Pulse Resp BP Pulse Ox 97.3 F L 83 20 154/84 H 99 07/09/17 20:26 07/09/17 20:26 07/09/17 20:26 07/09/17 20:26 07/09/17 20:26 - Medications Medications: Current Medications Acetaminophen (Tylenol 325mg Tab) 650 mg PO Q6 PRN PRN Reason: Pain, Mild (1-3) Last Admin: 07/04/17 20:04 Dose: 650 mg Docusate Sodium (Colace) 100 mg PO BID [facility] Last Admin: 07/09/17 17:13 Dose: 100 mg Enoxaparin Sodium (Lovenox) 40 mg SC DAILY [facility] PRN Reason: Protocol Last Admin: 07/09/17 08:35 Dose: 40 mg Ferrous Sulfate (Feosol) 325 mg PO BID [facility] Last Admin: 07/09/17 17:13 Dose: 325 mg Lactulose (Enulose) 20 gm PO BID PRN PRN Reason: Constipation Last Admin: 07/08/17 13:54 Dose: 20 gm Oxycodone/Acetaminophen (Percocet 5/325 Mg Tab) 2 tab PO Q4 PRN PRN Reason: Pain, moderate (4-7) Stop: 07/10/17 17:02 Last Admin: 07/09/17 23:41 Dose: 2 tab - Labs Labs: 07/04/17 06:00 PT 13.0 Seconds (9.8-13.1) 07/04/17 06:00 INR 1.2 (0.9-1.2) 07/04/17 06:00
[2017-07-10] MEDS: Oxycodone/Acetaminophen 5/325 mg Tab PO PRN ×4 (04:36→20:08)
[2017-07-10] MEDS: Enoxaparin 40 mg Syringe SC SCH (09:14)
--- NOTE | 2017-07-10 12:05 | CP.PCM.PN ---
Subjective - Date & Time of Evaluation Date of Evaluation: 07/08/17 Time of Evaluation: 13:00 - Subjective Subjective: no acute complaints at present Objective - Vital Signs/Intake and Output Vital Signs (last 24 hours): Temp Pulse Resp BP Pulse Ox 98.1 F 70 20 123/82 97 07/10/17 08:30 07/10/17 08:30 07/10/17 08:30 07/10/17 08:30 07/10/17 08:30 - Medications Medications: Current Medications Acetaminophen (Tylenol 325mg Tab) 650 mg PO Q6 PRN PRN Reason: Pain, Mild (1-3) Last Admin: 07/04/17 20:04 Dose: 650 mg Docusate Sodium (Colace) 100 mg PO BID [facility] Last Admin: 07/10/17 09:14 Dose: 100 mg Enoxaparin Sodium (Lovenox) 40 mg SC DAILY [facility] PRN Reason: Protocol Last Admin: 07/10/17 09:14 Dose: 40 mg Ferrous Sulfate (Feosol) 325 mg PO BID [facility] Last Admin: 07/10/17 09:14 Dose: 325 mg Lactulose (Enulose) 20 gm PO BID PRN PRN Reason: Constipation Last Admin: 07/08/17 13:54 Dose: 20 gm Oxycodone/Acetaminophen (Percocet 5/325 Mg Tab) 2 tab PO Q4 PRN PRN Reason: Pain, moderate (4-7) Stop: 07/10/17 17:02 Last Admin: 07/10/17 09:18 Dose: 2 tab - Labs Labs: 07/04/17 06:00 PT 13.0 Seconds (9.8-13.1) 07/04/17 06:00 INR 1.2 (0.9-1.2) 07/04/17 06:00 - Head Exam Head Exam: ATRAUMATIC, NORMAL INSPECTION, NORMOCEPHALIC - Eye Exam Eye Exam: EOMI, Normal appearance, PERRL Pupil Exam: NORMAL ACCOMODATION, PERRL - ENT Exam ENT Exam: Mucous Membranes Moist, Normal Exam - Neck Exam Neck Exam: Full ROM, Normal Inspection. absent: Lymphadenopathy - Respiratory Exam Respiratory Exam: Clear to Ausculation Bilateral, NORMAL BREATHING PATTERN - Cardiovascular Exam Cardiovascular Exam: REGULAR RHYTHM, +S1, +S2. absent: Murmur - GI/Abdominal Exam GI & Abdominal Exam: Soft, Normal Bowel Sounds. absent: Tenderness - Rectal Exam Rectal Exam: NORMAL INSPECTION - Exam External exam: NORMAL EXTERNAL EXAM - Extremities Exam Extremities Exam: Full ROM, Normal Capillary Refill, Normal Inspection. absent : Joint Swelling, Pedal Edema - Back Exam Back Exam: NORMAL INSPECTION - Neurological Exam Neurological Exam: Alert, Awake, CN II-XII Intact, Normal Gait, Oriented x3 Neuro motor strength exam: Right Upper Extremity: 4, Left Lower Extremity: 3, Right Lower Extremity: 4 - Psychiatric Exam Psychiatric exam: Normal Affect, Normal Mood - Skin Skin Exam: Dry, Intact, Normal Color, Warm Assessment and Plan (1) Femoral neck fracture Status: Acute (2) Fracture of femoral neck, left Assessment & Plan: plan for physical, occupational therapy program, range of motion, strenghtneing , transfers and gait training Status: Acute (3) Essential (primary) hypertension Status: Chronic
--- NOTE | 2017-07-10 19:55 | CP.PCM.PN ---
Subjective - Date & Time of Evaluation Date of Evaluation: 07/10/17 Time of Evaluation: 12:05 Objective - Vital Signs/Intake and Output Vital Signs (last 24 hours): Temp Pulse Resp BP Pulse Ox 97.5 F L 74 20 130/62 99 07/10/17 16:50 07/10/17 16:50 07/10/17 16:50 07/10/17 16:50 07/10/17 16:50 - Medications Medications: Current Medications Acetaminophen (Tylenol 325mg Tab) 650 mg PO Q6 PRN PRN Reason: Pain, Mild (1-3) Last Admin: 07/10/17 19:00 Dose: 650 mg Docusate Sodium (Colace) 100 mg PO BID [facility] Last Admin: 07/10/17 18:00 Dose: 100 mg Enoxaparin Sodium (Lovenox) 40 mg SC DAILY [facility] PRN Reason: Protocol Last Admin: 07/10/17 09:14 Dose: 40 mg Ferrous Sulfate (Feosol) 325 mg PO BID [facility] Last Admin: 07/10/17 18:00 Dose: 325 mg Lactulose (Enulose) 20 gm PO BID PRN PRN Reason: Constipation Last Admin: 07/08/17 13:54 Dose: 20 gm - Labs Labs: 07/04/17 06:00 PT 13.0 Seconds (9.8-13.1) 07/04/17 06:00 INR 1.2 (0.9-1.2) 07/04/17 06:00
[2017-07-11] MEDS: Oxycodone/Acetaminophen 5/325 mg Tab PO PRN ×4 (00:18→20:00)
[2017-07-11] MEDS: Enoxaparin 40 mg Syringe SC SCH (08:40)
--- NOTE | 2017-07-11 10:37 | CP.PCM.PN ---
Subjective - Date & Time of Evaluation Date of Evaluation: 07/11/17 Time of Evaluation: 10:00 - Subjective Subjective: Patient seen and examined at bedside comfortable. Pain is well controlled. No new complaints. Objective - Vital Signs/Intake and Output Vital Signs (last 24 hours): Temp Pulse Resp BP Pulse Ox 97.9 F 72 20 139/80 100 07/11/17 07:53 07/11/17 07:53 07/11/17 07:53 07/11/17 07:53 07/11/17 07:53 - Medications Medications: Current Medications Acetaminophen (Tylenol 325mg Tab) 650 mg PO Q6 PRN PRN Reason: Pain, Mild (1-3) Last Admin: 07/11/17 01:42 Dose: 650 mg Docusate Sodium (Colace) 100 mg PO BID [facility] Last Admin: 07/11/17 08:40 Dose: 100 mg Enoxaparin Sodium (Lovenox) 40 mg SC DAILY [facility] PRN Reason: Protocol Last Admin: 07/11/17 08:40 Dose: 40 mg Ferrous Sulfate (Feosol) 325 mg PO BID [facility] Last Admin: 07/11/17 08:40 Dose: 325 mg Lactulose (Enulose) 20 gm PO BID PRN PRN Reason: Constipation Last Admin: 07/08/17 13:54 Dose: 20 gm Oxycodone/Acetaminophen (Percocet 5/325 Mg Tab) 2 tab PO Q4 PRN PRN Reason: Pain, severe (8-10) Stop: 07/13/17 20:05 Last Admin: 07/11/17 09:41 Dose: 2 tab - Labs Labs: 07/04/17 06:00 PT 13.0 Seconds (9.8-13.1) 07/04/17 06:00 INR 1.2 (0.9-1.2) 07/04/17 06:00 - Extremities Exam Additional comments: L hip: no swelling, wound clean dry and intact with nathan, no drainage, sensation intact SP/DP/TN, motor intact EHL/FHL/TA/Gastroc/quad/HS/hip flex, pedal pulses intact, compartments soft/NT b/l Assessment and Plan (1) Fracture of femoral neck, left Assessment & Plan: Patient is POD#11 from [facility] doing well -nathan and stiches removed -PT/OT WBAT -clear to d/c from ortho s/p -f/u in office next Tuesday -case and plan d/w Dr. Montoya in agreement Status: Acute
[2017-07-11 16:04] VITALS: RESP 20
--- NOTE | 2017-07-11 18:16 | CP.PCM.PN ---
Subjective - Date & Time of Evaluation Date of Evaluation: 07/11/17 Time of Evaluation: 10:00 - Subjective Subjective: patinet with mild left leg weakness, no pain Objective - Vital Signs/Intake and Output Vital Signs (last 24 hours): Temp Pulse Resp BP Pulse Ox 97.9 F 78 20 131/78 99 07/11/17 16:03 07/11/17 16:03 07/11/17 16:03 07/11/17 16:03 07/11/17 16:03 - Medications Medications: Current Medications Acetaminophen (Tylenol 325mg Tab) 650 mg PO Q6 PRN PRN Reason: Pain, Mild (1-3) Last Admin: 07/11/17 01:42 Dose: 650 mg Docusate Sodium (Colace) 100 mg PO BID [facility] Last Admin: 07/11/17 16:03 Dose: 100 mg Enoxaparin Sodium (Lovenox) 40 mg SC DAILY [facility] PRN Reason: Protocol Last Admin: 07/11/17 08:40 Dose: 40 mg Ferrous Sulfate (Feosol) 325 mg PO BID [facility] Last Admin: 07/11/17 16:04 Dose: 325 mg Lactulose (Enulose) 20 gm PO BID PRN PRN Reason: Constipation Last Admin: 07/08/17 13:54 Dose: 20 gm Oxycodone/Acetaminophen (Percocet 5/325 Mg Tab) 2 tab PO Q4 PRN PRN Reason: Pain, severe (8-10) Stop: 07/13/17 20:05 Last Admin: 07/11/17 16:04 Dose: 2 tab - Labs Labs: 07/04/17 06:00 PT 13.0 Seconds (9.8-13.1) 07/04/17 06:00 INR 1.2 (0.9-1.2) 07/04/17 06:00 - Head Exam Head Exam: ATRAUMATIC, NORMAL INSPECTION, NORMOCEPHALIC - Eye Exam Eye Exam: EOMI, Normal appearance, PERRL - ENT Exam ENT Exam: Mucous Membranes Moist, Normal Exam - Neck Exam Neck Exam: Full ROM, Normal Inspection. absent: Lymphadenopathy - Respiratory Exam Respiratory Exam: Clear to Ausculation Bilateral, NORMAL BREATHING PATTERN - Cardiovascular Exam Cardiovascular Exam: REGULAR RHYTHM, +S1, +S2. absent: Murmur - GI/Abdominal Exam GI & Abdominal Exam: Soft, Normal Bowel Sounds. absent: Tenderness - Rectal Exam Rectal Exam: NORMAL INSPECTION - Exam External exam: NORMAL EXTERNAL EXAM - Extremities Exam Extremities Exam: Full ROM, Normal Capillary Refill - Back Exam Back Exam: NORMAL INSPECTION - Neurological Exam Neurological Exam: Alert, Awake Neuro motor strength exam: Left Upper Extremity: 4, Right Upper Extremity: 4, Left Lower Extremity: 3, Right Lower Extremity: 4 - Psychiatric Exam Psychiatric exam: Normal Affect, Normal Mood - Skin Skin Exam: Dry, Normal Color, Warm Assessment and Plan (1) Femoral neck fracture Assessment & Plan: plan for DC tommorrow follow up with PMD and ortho doctor,, outpatinet PT for patient Status: Acute (2) Fracture of femoral neck, left Status: Acute (3) Essential (primary) hypertension Status: Chronic
--- NOTE | 2017-07-11 18:21 | CP.PCM.PN ---
Subjective - Date & Time of Evaluation Date of Evaluation: 07/06/17 Time of Evaluation: 12:00 - Subjective Subjective: no acute complaints noted Objective - Vital Signs/Intake and Output Vital Signs (last 24 hours): Temp Pulse Resp BP Pulse Ox 97.9 F 78 20 131/78 99 07/11/17 16:03 07/11/17 16:03 07/11/17 16:03 07/11/17 16:03 07/11/17 16:03 - Medications Medications: Current Medications Acetaminophen (Tylenol 325mg Tab) 650 mg PO Q6 PRN PRN Reason: Pain, Mild (1-3) Last Admin: 07/11/17 01:42 Dose: 650 mg Docusate Sodium (Colace) 100 mg PO BID [facility] Last Admin: 07/11/17 16:03 Dose: 100 mg Enoxaparin Sodium (Lovenox) 40 mg SC DAILY [facility] PRN Reason: Protocol Last Admin: 07/11/17 08:40 Dose: 40 mg Ferrous Sulfate (Feosol) 325 mg PO BID [facility] Last Admin: 07/11/17 16:04 Dose: 325 mg Lactulose (Enulose) 20 gm PO BID PRN PRN Reason: Constipation Last Admin: 07/08/17 13:54 Dose: 20 gm Oxycodone/Acetaminophen (Percocet 5/325 Mg Tab) 2 tab PO Q4 PRN PRN Reason: Pain, severe (8-10) Stop: 07/13/17 20:05 Last Admin: 07/11/17 16:04 Dose: 2 tab - Labs Labs: 07/04/17 06:00 PT 13.0 Seconds (9.8-13.1) 07/04/17 06:00 INR 1.2 (0.9-1.2) 07/04/17 06:00 - Head Exam Head Exam: ATRAUMATIC, NORMAL INSPECTION, NORMOCEPHALIC - Eye Exam Eye Exam: EOMI, Normal appearance, PERRL - ENT Exam ENT Exam: Mucous Membranes Moist, Normal Exam - Neck Exam Neck Exam: Full ROM, Normal Inspection. absent: Lymphadenopathy - Respiratory Exam Respiratory Exam: Clear to Ausculation Bilateral, NORMAL BREATHING PATTERN - Cardiovascular Exam Cardiovascular Exam: REGULAR RHYTHM, +S1, +S2. absent: Murmur - GI/Abdominal Exam GI & Abdominal Exam: Soft, Normal Bowel Sounds. absent: Tenderness - Rectal Exam Rectal Exam: NORMAL INSPECTION - Exam External exam: NORMAL EXTERNAL EXAM Bimanual exam: NORMAL BIMANUAL EXAM - Extremities Exam Extremities Exam: Full ROM, Normal Capillary Refill, Normal Inspection. absent : Joint Swelling, Pedal Edema - Back Exam Back Exam: NORMAL INSPECTION - Neurological Exam Neurological Exam: Alert, Awake, CN II-XII Intact, Oriented x3 Neuro motor strength exam: Left Lower Extremity: 3 - Psychiatric Exam Psychiatric exam: Normal Affect, Normal Mood - Skin Skin Exam: Normal Color, Warm Assessment and Plan (1) Femoral neck fracture Assessment & Plan: plan for physical, occupational therapy continue treatment Status: Acute (2) Fracture of femoral neck, left Status: Acute (3) Essential (primary) hypertension Status: Chronic
--- NOTE | 2017-07-11 20:25 | CP.PCM.PN ---
Subjective - Date & Time of Evaluation Date of Evaluation: 07/11/17 Objective - Vital Signs/Intake and Output Vital Signs (last 24 hours): Temp Pulse Resp BP Pulse Ox 98.2 F 80 20 123/79 98 07/11/17 19:42 07/11/17 19:42 07/11/17 19:42 07/11/17 19:42 07/11/17 19:42 - Medications Medications: Current Medications Acetaminophen (Tylenol 325mg Tab) 650 mg PO Q6 PRN PRN Reason: Pain, Mild (1-3) Last Admin: 07/11/17 01:42 Dose: 650 mg Docusate Sodium (Colace) 100 mg PO BID [facility] Last Admin: 07/11/17 16:03 Dose: 100 mg Enoxaparin Sodium (Lovenox) 40 mg SC DAILY [facility] PRN Reason: Protocol Last Admin: 07/11/17 08:40 Dose: 40 mg Ferrous Sulfate (Feosol) 325 mg PO BID [facility] Last Admin: 07/11/17 16:04 Dose: 325 mg Lactulose (Enulose) 20 gm PO BID PRN PRN Reason: Constipation Last Admin: 07/08/17 13:54 Dose: 20 gm Oxycodone/Acetaminophen (Percocet 5/325 Mg Tab) 2 tab PO Q4 PRN PRN Reason: Pain, severe (8-10) Stop: 07/13/17 20:05 Last Admin: 07/11/17 20:00 Dose: 2 tab - Labs Labs: 07/04/17 06:00 PT 13.0 Seconds (9.8-13.1) 07/04/17 06:00 INR 1.2 (0.9-1.2) 07/04/17 06:00
[2017-07-12] MEDS: Oxycodone/Acetaminophen 5/325 mg Tab PO PRN ×2 (02:26→08:13)
[2017-07-12 07:56] VITALS: BP 140/72; PULSE 79; TEMP 97.7; O2SAT 100
[2017-07-12] MEDS ORDERED: Influenza Vaccine 18yr & older 0.5 ML/45 MCG SYR IM ONE (08:08)
[2017-07-12] MEDS: Enoxaparin 40 mg Syringe SC SCH (08:14)
[2017-07-12] MEDS ORDERED: Pneumococcal 23-Valent Vaccine IM ONE (09:45)
--- NOTE | 2017-07-14 05:13 | CP.PCM.DIS ---
Provider - Provider Date of Admission: 07/01/17 13:50 Attending physician: Paulino Mcdaniels MD Time Spent in preparation of Discharge (in minutes): 25 Diagnosis - Discharge Diagnosis (1) Status post total hip replacement, left Status: Acute Priority: High (2) Essential (primary) hypertension Status: Chronic Priority: Low Hospital Course - Lab Results Lab Results: Most Recent Lab Values WBC 11.6 K/uL (4.8-10.8) H 07/04/17 06:00 RBC 3.36 Mil/uL (4.40-5.90) L 07/04/17 06:00 Hgb 10.1 g/dL (12.0-18.0) L 07/04/17 06:00 Hct 30.2 % (35.0-51.0) L 07/04/17 06:00 MCV 89.9 fl (80.0-94.0) 07/04/17 06:00 MCH 30.2 pg (27.0-31.0) 07/04/17 06:00 MCHC 33.6 g/dL (33.0-37.0) 07/04/17 06:00 RDW 12.9 % (11.5-14.5) 07/04/17 06:00 Plt Count 303 K/uL (130-400) D 07/04/17 06:00 PT 13.0 Seconds (9.8-13.1) 07/04/17 06:00 INR 1.2 (0.9-1.2) 07/04/17 06:00 Discharge Exam - Head Exam Head Exam: ATRAUMATIC Discharge Plan - Follow Up Plan Condition: GOOD Disposition: HOME/ ROUTINE Instructions: Total Hip Replacement (DC) Referrals: Niko Montoya III, MD [Staff Provider] - Paulino Mcdaniels MD [Staff Provider] -
== END 2017-07-12 13:45 | disposition home or self-care (01) | DRG 561 ==
LOC: INTOOBSV 13:50 → H.TCU 13:50 → OBSVTOIN 13:50
PROVIDERS: ADMIT Internal Medicine; ATTEND Internal Medicine
PROC: F07Z9FZ Gait Training/Functional Ambulation Treatment using Assistive, Adaptive, Supportive or Protective Equipment (ICD-10-PCS; principal; 2017-07-01)
PROC: F07M6FZ Therapeutic Exercise Treatment of Musculoskeletal System - Whole Body using Assistive, Adaptive, Supportive or Protective Equipment (ICD-10-PCS; 2017-07-01)
PROC: F08Z4FZ Home Management Treatment using Assistive, Adaptive, Supportive or Protective Equipment (ICD-10-PCS; 2017-07-01)
PROC: 3E0234Z Introduction of Serum, Toxoid and Vaccine into Muscle, Percutaneous Approach (ICD-10-PCS; 2017-07-12)
DX: S72.002D Fracture of unspecified part of neck of left femur, subsequent encounter for closed fracture with routine healing (principal); D72.829 Elevated white blood cell count, unspecified; Z47.1 Aftercare following joint replacement surgery; N48.89 Other specified disorders of penis; R53.1 Weakness; Z96.642 Presence of left artificial hip joint; W11.XXXD Fall on and from ladder, subsequent encounter; Z87.81 Personal history of (healed) traumatic fracture; Z86.19 Personal history of other infectious and parasitic diseases; I10 Essential (primary) hypertension; K59.00 Constipation, unspecified; Z23 Encounter for immunization